=== PATIENT | male | born 1950 | race African-American/Black ===

== ENCOUNTER 2022-05-18 15:04 | Inpatient (IN) | payer MEDICARE, MEDICAID ==
[~2022-05-18] VITALS: Ht 170.2 cm; Wt 76.5 kg
[2022-05-18] MEDS ORDERED: SODIUM CHLORIDE 0.9% 1,000 ML IV ONE (15:45)
[2022-05-18 15:58] LABS: BASOPHILS % (AUTO) 0.4 % (0.0-2.0); EOSINOPHILS % (AUTO) 0 % (1.0-6.0); HEMOGLOBIN 12.5 g/dL (13.5-17.5); MONOCYTES # (AUTO) 1.1 K/uL (0.1-1.0)
[2022-05-18 16:02] LABS: HEMATOCRIT 40.5 % (41-53); LYMPHOCYTES # (AUTO) 0.5 K/uL (1.0-4.8); LYMPHOCYTES % (AUTO) 3.7 % (22.0-44.0); MEAN CORPUSCULAR HEMOGLOBIN 26.8 pg (26.0-34.0); MEAN CORPUSCULAR HGB CONC 30.9 G/dL (31.0-37.0); MEAN CORPUSCULAR VOLUME 87 fL (80-100); MONOCYTES % (AUTO) 8.8 % (2.0-9.0); NEUTROPHILS # (AUTO) 10.9 K/uL (1.8-7.7); PLATELET COUNT (AUTO) 247 K/uL (150-450); RED BLOOD CELL COUNT(AUTO) 4.67 MIL/uL (4.50-5.90); RED CELL DISTRIBUTION WIDTH 15.7 % (11.5-14.5)
[2022-05-18 16:08] LABS: NEUTROPHILS % (AUTO) 87.1 % (40.0-70.0)
[2022-05-18 16:12] LABS: INR 1.1 (0.9-1.1); PROTHROMBIN TIME 11.9 SEC (9.4-11.6)
[2022-05-18 16:13] LABS: COVID AG,FIA SOURCE NASOPHARYNGEAL
[2022-05-18 16:19] LABS: APPEARANCE,URINE HAZY (CLEAR); BILIRUBIN,URINE NEGATIVE (NEGATIVE); GLUCOSE, URINE (UA) NEGATIVE (NEGATIVE); LEUKOCYTE ESTERASE ,URINE NEGATIVE (NEGATIVE); NITRATE,URINE NEGATIVE (NEGATIVE); OCCULT BLOOD,URINE LARGE (NEGATIVE); PROTEIN,URINE 100-200,SEE CONFIRM mg/dL (NEGATIVE); SPECIFIC GRAVITIY, URINE 1.024 (1.003-1.030); UROBILINOGEN,URINE <=1.0 mg/dL (<=1.0)
[2022-05-18 16:19] LABS: AMMONIA 24 umol/L (11-32); LACTIC ACID 6.9 mmol/L (0.4-2.0)
[2022-05-18 16:25] LABS: ALANINE AMINOTRANSFERASE 156 U/L (12-78); ALBUMIN 3.5 g/dL (3.4-5.0); ALKALINE PHOSPHATASE 121 U/L (46-116); ANION GAP 18 mmol/L (8-16); ASPARTATE AMINOTRANSFERASE 465 U/L (15-37); BILIRUBIN,TOTAL 0.7 mg/dL (0.1-1.0); CALCIUM, TOTAL 10.8 mg/dL (8.8-10.5); CARBON DIOXIDE 26 mmol/L (22-29); CHLORIDE 117 mmol/L (98-107); CREATININE 3.52 mg/dL (0.60-1.30); FREE T4 (FREE THYROXINE) 1.54 ng/dL (0.76-1.46); GLUCOSE,RANDOM 165 mg/dL (70-110); POTASSIUM 4.8 mmol/L (3.5-5.1); THYROID STIMULATING HORMONE 0.98 uIU/mL (0.36-3.74); TOTAL PROTEIN, SERUM 9.8 g/dL (6.4-8.2); UREA NITROGEN, BLOOD 98 mg/dL (7-18)
[2022-05-18 16:30] LABS: AMPHET/METH SCREEN,URINE NEGATIVE (NEGATIVE); BARBITURATE SCREEN, URINE NEGATIVE (NEGATIVE); BENZODIAZEPINES SCREEN,URINE NEGATIVE (NEGATIVE); CANNABINOID SCREEN,URINE NEGATIVE (NEGATIVE); COCAINE SCREEN,URINE NEGATIVE (NEGATIVE); METHADONE SCREEN, URINE NEGATIVE (NEGATIVE); OPIATE SCREEN,URINE NEGATIVE (NEGATIVE); PHENCYCLIDINE SCREEN,URINE NEGATIVE (NEGATIVE)
[2022-05-18 16:39] LABS: GLOMERULAR FILTR. RATE CALC 15 mL/min (>60)
[2022-05-18 16:40] LABS: INFLUENZA TYPE A NEGATIVE FOR TYPE A (NEGATIVE); INFLUENZA TYPE B NEGATIVE FOR TYPE B (NEGATIVE)
[2022-05-18 16:40] LABS: DIGOXIN < 0.20 ng/mL (0.90-2.00); VALPROIC ACID < 3 mcg/mL (50-100)
[2022-05-18 16:41] LABS: AMORPHOUS SEDIMENT,UR Few /LPF (None Seen); BACTERIA,URINE Few /HPF (None Seen); COARSE GRANULAR CASTS,URINE 0-2 /LPF (None Seen); SQUAMOUS EPITHELIAL CELL,UR Few /LPF (None Seen); WBC,URINE 0-2 /HPF (0-5); YEAST,URINE None Seen /HPF (None Seen)
[2022-05-18 16:42] LABS: SULFOSALICYLIC ACID,URINE 2+ (Negative)
[2022-05-18 16:42] LABS: SODIUM SERUM 161 mmol/L (136-145)
[2022-05-18] MEDS ORDERED: RINGERS LACTATED IV ONE (16:45)
[2022-05-18 16:47] LABS: B-TYPE NATRIURETIC PEPTIDE 91 pg/mL (0-100)
[2022-05-18] MEDS ORDERED: PIPERACILLIN/TAZO 3.375 GM/D5W 50 ML IV ONE (17:00)
[2022-05-18 17:17] LABS: CREATINE KINASE, TOTAL ONLY 19365 U/L (39-308)
[2022-05-18] MEDS ORDERED: ASPIRIN 300 MG RECTAL SUPPOSITORY PR ONE (18:00)
[2022-05-18] MEDS: VANCOMYCIN HCL 1.25 GM in DEXTROSE 5%-WATER 250 ML IV ONE ×2 (18:55→20:06)
[2022-05-18] MEDS ORDERED: DEXTROSE 5%-WATER 1,000 ML IV SCH (20:15)
[2022-05-18] MEDS ORDERED: ONDANSETRON HCL 4 MG/2 ML VIAL IVP PRN (20:15)
[2022-05-18] MEDS ORDERED: *CLINICAL-CEFEPIME DOSING CLINICAL ONE (21:00)
[2022-05-18 21:02] LABS: ALBUMIN 3.1 g/dL (3.4-5.0); BILIRUBIN,TOTAL 0.6 mg/dL (0.1-1.0); CALCIUM, TOTAL 10.2 mg/dL (8.8-10.5); CREATININE 3.63 mg/dL (0.60-1.30); POTASSIUM 4.9 mmol/L (3.5-5.1); TOTAL PROTEIN, SERUM 8.7 g/dL (6.4-8.2)
[2022-05-18] MEDS ORDERED: SODIUM CHLORIDE 0.9% 1,000 ML IV SCH (21:15)
[2022-05-18] MEDS: SODIUM CHLORIDE 0.45% 1,000 ML IV SCH (21:37)
[2022-05-18] MEDS ORDERED: DEXTROSE 50%-WATER 25 GM/50 ML SYRINGE IVP PRN (21:45)
[2022-05-18] MEDS ORDERED: ROCURONIUM BROMIDE 10 MG/ML 5 ML VIAL IVP ONE (21:45)
[2022-05-18] MEDS ORDERED: ETOMIDATE 2 MG/ML 10 ML VIAL IVP ONE (21:45)
[2022-05-18] MEDS ORDERED: CEFEPIME HCL 1 GM in DEXTROSE 5%-WATER 50 ML IV ONE (22:00)
[2022-05-18] MEDS: MIDAZOLAM HCL 100 MG in SODIUM CHLORIDE 0.9% 180 ML IV PRN (22:58)
[2022-05-19] MEDS ORDERED: NITROGLYCERIN 2% (1 GM=INCH) OINTMENT PACKET TP PRN (00:30)
[2022-05-19] MEDS: HEPARIN SODIUM,PORCINE 5,000 UNITS/ML VIAL SQ SCH ×3 (00:38→17:39)
[2022-05-19] MEDS: SODIUM CHLORIDE 0.45% 1,000 ML IV SCH ×4 (04:14→21:04)
[2022-05-19] MEDS: NITROGLYCERIN 2% (1 GM=INCH) OINTMENT PACKET TP SCH ×3 (06:18→18:00)
[2022-05-19 06:54] LABS: ABG CARBOXYHEMOGLOBIN 0.3 % (0.0-1.5); ABG HCO3 24.6 mmol/L (22.0-26.0); ABG METHEMOGLOBIN 0.3 % (0.0-1.5); ABG OXYGEN CONTENT 16.7 mL/dL (15.0-23.0); ABG OXYGEN SATURATION 98.6 % (95.0-98.0); ABG PCO2 38 mmHg (35-45); ABG PH 7.423 (7.35-7.450); ABG TOTAL HEMOGLOBIN 11.9 G/dL (12.0-18.0); SOURCE, BLOOD GAS ARTERIAL; TEMPERATURE, FAHRENHEIT, BG 97.1 FAHREN (96.0-98.6)
[2022-05-19 06:56] LABS: ABG A-A DIFF O2 177.4 mmHg (10-20.0); O2 DEVICE,BLOOD GAS VENTILATOR (ROOM AIR); PEEP,BG 5 cm H2O; SITE, BLOOD GAS RT BRACHIAL; SPONTANEOUS VT, BG 425 ml; VT, ABG 450 ml
[2022-05-19] MEDS ORDERED: VANCOMYCIN 1GM/WATER(PEG/NADA) 200 ML IV PRN (07:30)
[2022-05-19 08:09] LABS: CALCIUM, TOTAL 8.9 mg/dL (8.8-10.5); CREATININE 4.65 mg/dL (0.60-1.30); POTASSIUM 4.1 mmol/L (3.5-5.1)
[2022-05-19 08:42] LABS: HEMATOCRIT 35.1 % (41-53); HEMOGLOBIN 10.9 g/dL (13.5-17.5); MEAN CORPUSCULAR HEMOGLOBIN 26.6 pg (26.0-34.0); MEAN CORPUSCULAR VOLUME 86 fL (80-100); PLATELET COUNT (AUTO) 197 K/uL (150-450); RED BLOOD CELL COUNT(AUTO) 4.08 MIL/uL (4.50-5.90); RED CELL DISTRIBUTION WIDTH 15.9 % (11.5-14.5)
[2022-05-19 09:16] LABS: BAND NEUTROPHILS % (MANUAL) 9 % (0-5); LYMPHOCYTES % (MANUAL) 11 % (22-44); MONOCYTES % (MANUAL) 4 % (2-9); SEGMENTED NEUTROPHILS % 76 % (40-70)
[2022-05-19] MEDS ORDERED: FUROSEMIDE 40 MG/4 ML VIAL IVP ONE (10:30)
[2022-05-19 12:00] VITALS: BP 140/68
[2022-05-19] MEDS: FentaNYL CIT 1000MCG/0.9% NACL 100 ML IV PRN (14:24)
[2022-05-19 16:00] VITALS: BP 135/70
[2022-05-19 17:13] LABS: CALCIUM, TOTAL 8.2 mg/dL (8.8-10.5); CREATININE 5.17 mg/dL (0.60-1.30); MAGNESIUM 2.8 mg/dL (1.80-2.40); PHOSPHORUS 6.9 mg/dL (2.5-4.9); POTASSIUM 4.3 mmol/L (3.5-5.1)
[2022-05-19] MEDS ORDERED: BUMETANIDE 0.25 MG/ML 4 ML VIAL IM ONE (17:30)
[2022-05-19 20:00] VITALS: BP 122/73
[2022-05-19] MEDS: CEFEPIME HCL 1 GM in DEXTROSE 5%-WATER 50 ML IV SCH (21:03)
[2022-05-20] VITALS: BP 121/77
[2022-05-20] MEDS: HEPARIN SODIUM,PORCINE 5,000 UNITS/ML VIAL SQ SCH ×3 (00:11→16:32)
[2022-05-20] MEDS: FentaNYL CIT 1000MCG/0.9% NACL 100 ML IV PRN ×2 (00:12→14:41)
[2022-05-20] MEDS: NITROGLYCERIN 2% (1 GM=INCH) OINTMENT PACKET TP SCH ×4 (00:14→18:05)
[2022-05-20 01:41] LABS: GLUCOSE,POINT OF CARE 93 MG/DL (70-110)
[2022-05-20 04:00] VITALS: BP 156/85
[2022-05-20 05:19] LABS: BASOPHILS % (AUTO) 0.2 % (0.0-2.0); EOSINOPHILS % (AUTO) 0.2 % (1.0-6.0); HEMATOCRIT 27.6 % (41-53); HEMOGLOBIN 8.9 g/dL (13.5-17.5); LYMPHOCYTES # (AUTO) 0.6 K/uL (1.0-4.8); LYMPHOCYTES % (AUTO) 5.5 % (22.0-44.0); MEAN CORPUSCULAR HEMOGLOBIN 27.3 pg (26.0-34.0); MEAN CORPUSCULAR HGB CONC 32.3 G/dL (31.0-37.0); MEAN CORPUSCULAR VOLUME 85 fL (80-100); MONOCYTES # (AUTO) 0.8 K/uL (0.1-1.0); MONOCYTES % (AUTO) 7.8 % (2.0-9.0); NEUTROPHILS # (AUTO) 8.9 K/uL (1.8-7.7); PLATELET COUNT (AUTO) 157 K/uL (150-450); RED BLOOD CELL COUNT(AUTO) 3.26 MIL/uL (4.50-5.90); RED CELL DISTRIBUTION WIDTH 15.7 % (11.5-14.5)
[2022-05-20 05:27] LABS: NEUTROPHILS % (AUTO) 86.3 % (40.0-70.0)
[2022-05-20 05:28] LABS: HEMOGLOBIN A1C 5.8 % (3.8-5.6)
[2022-05-20 05:32] LABS: CREATININE 6.08 mg/dL (0.60-1.30); POTASSIUM 4.5 mmol/L (3.5-5.1); VANCOMYCIN,RANDOM 13.8 mcg/mL (25.0-50.0)
[2022-05-20 05:45] LABS: MAGNESIUM 2.7 mg/dL (1.80-2.40)
[2022-05-20] MEDS ORDERED: BUMETANIDE 0.25 MG/ML 4 ML VIAL IVP ONE ×2 (06:15→14:15)
[2022-05-20 06:21] LABS: GLUCOSE,POINT OF CARE 112 MG/DL (70-110)
[2022-05-20] MEDS: SODIUM CHLORIDE 0.45% 1,000 ML IV SCH ×3 (06:33→20:05)
[2022-05-20 08:00] VITALS: BP 130/81
[2022-05-20] MEDS ORDERED: VANCOMYCIN 1GM/WATER(PEG/NADA) 200 ML IV ONE (08:00)
[2022-05-20 08:11] LABS: GLUCOSE,POINT OF CARE 83 MG/DL (70-110)
[2022-05-20] MEDS ORDERED: SODIUM CHLORIDE 0.9% 250 ML IV ONE (08:30)
[2022-05-20 12:00] VITALS: BP 127/77
[2022-05-20 13:46] LABS: GLUCOSE,POINT OF CARE 74 MG/DL (70-110)
[2022-05-20 15:30] LABS: CREATININE,URINE RANDOM 19.9 mg/dL (30.0-125.0)
[2022-05-20 16:00] VITALS: BP 144/84
[2022-05-20 18:01] LABS: CREATININE 6.74 mg/dL (0.60-1.30)
[2022-05-20 18:36] LABS: GLUCOSE,POINT OF CARE 81 MG/DL (70-110)
[2022-05-20 19:21] LABS: GLUCOSE,POINT OF CARE 79 MG/DL (70-110)
[2022-05-20 20:00] VITALS: BP 136/77
[2022-05-20] MEDS: BUMETANIDE 0.25 MG/ML 4 ML VIAL IVP SCH (20:05)
[2022-05-20] MEDS: CEFEPIME HCL 1 GM in DEXTROSE 5%-WATER 50 ML IV SCH (21:40)
[2022-05-21] VITALS: BP 136/87
[2022-05-21] MEDS: HEPARIN SODIUM,PORCINE 5,000 UNITS/ML VIAL SQ SCH ×3 (00:02→16:55)
[2022-05-21] MEDS: NITROGLYCERIN 2% (1 GM=INCH) OINTMENT PACKET TP SCH ×4 (00:03→16:55)
[2022-05-21] MEDS: SODIUM CHLORIDE 0.45% 1,000 ML IV SCH ×2 (02:49→08:14)
[2022-05-21] MEDS: FentaNYL CIT 1000MCG/0.9% NACL 100 ML IV PRN ×2 (02:50→18:02)
[2022-05-21 04:00] VITALS: BP 158/91
[2022-05-21 05:32] LABS: CALCIUM, TOTAL 7.8 mg/dL (8.8-10.5); CREATININE 7.28 mg/dL (0.60-1.30)
[2022-05-21 06:30] LABS: MAGNESIUM 2.8 mg/dL (1.80-2.40); PHOSPHORUS 7.9 mg/dL (2.5-4.9)
[2022-05-21] MEDS ORDERED: SODIUM CHLORIDE 0.9% 250 ML IV ONE (06:49)
[2022-05-21 06:56] LABS: GLUCOSE,POINT OF CARE 85 MG/DL (70-110)
[2022-05-21 06:56] LABS: GLUCOSE,POINT OF CARE 77 MG/DL (70-110)
[2022-05-21 08:00] VITALS: BP 160/90
[2022-05-21] MEDS: BUMETANIDE 0.25 MG/ML 4 ML VIAL IVP SCH ×2 (08:11→20:46)
[2022-05-21 09:49] LABS: CALCIUM, TOTAL 7.7 mg/dL (8.8-10.5); CREATININE 7.5 mg/dL (0.60-1.30); POTASSIUM 4.9 mmol/L (3.5-5.1)
[2022-05-21] MEDS: AmLODIPine BESYLATE 2.5 MG TABLET PO SCH ×2 (11:42→20:46)
[2022-05-21 12:00] VITALS: BP 160/98
[2022-05-21] MEDS ORDERED: BUMETANIDE 0.25 MG/ML 4 ML VIAL IVP ONE (13:30)
[2022-05-21] MEDS ORDERED: METOLAZONE 5 MG TABLET PO ONE (13:30)
[2022-05-21 16:00] VITALS: BP 160/90
[2022-05-21 17:06] LABS: GLUCOSE,POINT OF CARE 91 MG/DL (70-110)
[2022-05-21 20:00] VITALS: BP 157/92
[2022-05-21 20:46] LABS: GLUCOSE,POINT OF CARE 96 MG/DL (70-110)
[2022-05-21] MEDS: HydrALAZINE HCL 20 MG/ML VIAL IVP PRN (21:35)
[2022-05-21] MEDS: CEFEPIME HCL 1 GM in DEXTROSE 5%-WATER 50 ML IV SCH (21:41)
[2022-05-22] VITALS (12 sets, daily range): BP systolic 132–174; BP diastolic 70–88
[2022-05-22] MEDS: HEPARIN SODIUM,PORCINE 5,000 UNITS/ML VIAL SQ SCH ×4 (00:16→23:46)
[2022-05-22] MEDS: NITROGLYCERIN 2% (1 GM=INCH) OINTMENT PACKET TP SCH ×5 (00:17→23:46)
[2022-05-22] MEDS ORDERED: SODIUM CHLORIDE 0.9% 250 ML IV ONE ×2 (02:14→20:26)
[2022-05-22 05:47] LABS: BASOPHILS % (AUTO) 0.2 % (0.0-2.0); EOSINOPHILS % (AUTO) 1.6 % (1.0-6.0); HEMATOCRIT 27.2 % (41-53); HEMOGLOBIN 8.7 g/dL (13.5-17.5); LYMPHOCYTES # (AUTO) 0.6 K/uL (1.0-4.8); LYMPHOCYTES % (AUTO) 4.6 % (22.0-44.0); MEAN CORPUSCULAR HEMOGLOBIN 26.9 pg (26.0-34.0); MEAN CORPUSCULAR VOLUME 84 fL (80-100); MONOCYTES % (AUTO) 7.6 % (2.0-9.0); NEUTROPHILS # (AUTO) 11.2 K/uL (1.8-7.7); PLATELET COUNT (AUTO) 192 K/uL (150-450); RED BLOOD CELL COUNT(AUTO) 3.23 MIL/uL (4.50-5.90); RED CELL DISTRIBUTION WIDTH 15.7 % (11.5-14.5)
[2022-05-22 05:53] LABS: CALCIUM, TOTAL 8.2 mg/dL (8.8-10.5); CREATININE 8.38 mg/dL (0.60-1.30); PHOSPHORUS 8.2 mg/dL (2.5-4.9); POTASSIUM 5.2 mmol/L (3.5-5.1); VANCOMYCIN,RANDOM 24.4 mcg/mL (25.0-50.0)
[2022-05-22] MEDS: FentaNYL CIT 1000MCG/0.9% NACL 100 ML IV PRN ×2 (06:03→14:09)
[2022-05-22 06:12] LABS: GLUCOSE,POINT OF CARE 108 MG/DL (70-110)
[2022-05-22 06:12] LABS: GLUCOSE,POINT OF CARE 117 MG/DL (70-110)
[2022-05-22] MEDS: AmLODIPine BESYLATE 2.5 MG TABLET PO SCH ×2 (10:23→21:57)
[2022-05-22] MEDS: BUMETANIDE 0.25 MG/ML 4 ML VIAL IVP SCH ×2 (10:23→20:31)
[2022-05-22 14:06] LABS: GLUCOSE,POINT OF CARE 125 MG/DL (70-110)
[2022-05-22 14:06] LABS: GLUCOSE,POINT OF CARE 133 MG/DL (70-110)
[2022-05-22] MEDS: MIDAZOLAM HCL 100 MG in SODIUM CHLORIDE 0.9% 180 ML IV PRN (14:07)
[2022-05-22] MEDS ORDERED: SODIUM CHLORIDE 0.9% 2,000 ML ONE (15:52)
[2022-05-22] MEDS ORDERED: HEPARIN SODIUM,PORCINE 1,000 UNITS/ML VIAL IVCATH ONE (17:15)
[2022-05-22] MEDS: HEPARIN SODIUM,PORCINE 1,000 UNITS/ML VIAL IVCATH ONE ×2 (17:42→18:04)
[2022-05-22 19:41] LABS: GLUCOSE,POINT OF CARE 123 MG/DL (70-110)
[2022-05-22] MEDS: CEFEPIME HCL 1 GM in DEXTROSE 5%-WATER 50 ML IV SCH (20:32)
[2022-05-23] VITALS (15 sets, daily range): BP systolic 133–166; BP diastolic 62–90
[2022-05-23] MEDS: FentaNYL CIT 1000MCG/0.9% NACL 100 ML IV PRN ×2 (00:30→09:43)
[2022-05-23] MEDS: HydrALAZINE HCL 20 MG/ML VIAL IVP PRN (00:35)
[2022-05-23 02:16] LABS: GLUCOSE,POINT OF CARE 127 MG/DL (70-110)
[2022-05-23] MEDS: NITROGLYCERIN 2% (1 GM=INCH) OINTMENT PACKET TP SCH ×3 (06:33→18:44)
[2022-05-23 06:44] LABS: BASOPHILS % (AUTO) 0.2 % (0.0-2.0); EOSINOPHILS % (AUTO) 2.6 % (1.0-6.0); HEMATOCRIT 25.7 % (41-53); HEMOGLOBIN 8.3 g/dL (13.5-17.5); LYMPHOCYTES # (AUTO) 0.6 K/uL (1.0-4.8); LYMPHOCYTES % (AUTO) 4.8 % (22.0-44.0); MEAN CORPUSCULAR HEMOGLOBIN 26.7 pg (26.0-34.0); MEAN CORPUSCULAR HGB CONC 32.3 G/dL (31.0-37.0); MEAN CORPUSCULAR VOLUME 83 fL (80-100); MONOCYTES # (AUTO) 1.1 K/uL (0.1-1.0); MONOCYTES % (AUTO) 8.4 % (2.0-9.0); NEUTROPHILS # (AUTO) 10.6 K/uL (1.8-7.7); PLATELET COUNT (AUTO) 181 K/uL (150-450); RED BLOOD CELL COUNT(AUTO) 3.11 MIL/uL (4.50-5.90); RED CELL DISTRIBUTION WIDTH 15.6 % (11.5-14.5)
[2022-05-23 07:01] LABS: CALCIUM, TOTAL 7.8 mg/dL (8.8-10.5); CREATININE 6.29 mg/dL (0.60-1.30); MAGNESIUM 2.5 mg/dL (1.80-2.40); PHOSPHORUS 6.2 mg/dL (2.5-4.9); POTASSIUM 4.5 mmol/L (3.5-5.1)
[2022-05-23 07:23] LABS: PLATELET MORPHOLOGY COMMENT LARGE PLTS PRESENT
[2022-05-23] MEDS: HEPARIN SODIUM,PORCINE 5,000 UNITS/ML VIAL SQ SCH ×2 (08:17→16:58)
[2022-05-23] MEDS: AmLODIPine BESYLATE 2.5 MG TABLET PO SCH ×2 (08:21→21:14)
[2022-05-23] MEDS: BUMETANIDE 0.25 MG/ML 4 ML VIAL IVP SCH (08:21)
[2022-05-23] MEDS: DEXMEDETOMIDINE HCL 400 MCG in SODIUM CHLORIDE 0.9% 96 ML IV PRN (10:16)
[2022-05-23 13:21] LABS: GLUCOSE,POINT OF CARE 109 MG/DL (70-110)
[2022-05-23 13:21] LABS: GLUCOSE,POINT OF CARE 124 MG/DL (70-110)
[2022-05-23] MEDS ORDERED: VANCOMYCIN HCL 750 MG in DEXTROSE 5%-WATER 250 ML IV ONE (16:00)
[2022-05-23] MEDS ORDERED: HEPARIN SODIUM,PORCINE 1,000 UNITS/ML VIAL IVP ONE (16:37)
[2022-05-23 18:11] LABS: GLUCOSE,POINT OF CARE 125 MG/DL (70-110)
[2022-05-23] MEDS ORDERED: SODIUM CHLORIDE 0.9% 250 ML IV ONE (21:13)
[2022-05-23] MEDS: CEFEPIME HCL 1 GM in DEXTROSE 5%-WATER 50 ML IV SCH (21:14)
[2022-05-24] VITALS: BP 156/81
[2022-05-24] MEDS: HEPARIN SODIUM,PORCINE 5,000 UNITS/ML VIAL SQ SCH ×4 (00:08→23:30)
[2022-05-24] MEDS: NITROGLYCERIN 2% (1 GM=INCH) OINTMENT PACKET TP SCH ×5 (00:08→23:30)
[2022-05-24] MEDS: INSULIN LISPRO 100 UNITS/ML SQ PRN ×3 (00:09→23:47)
[2022-05-24 00:56] LABS: GLUCOSE,POINT OF CARE 152 MG/DL (70-110)
[2022-05-24 04:00] VITALS: BP 149/84
[2022-05-24 05:18] LABS: BASOPHILS % (AUTO) 0.1 % (0.0-2.0); EOSINOPHILS % (AUTO) 3.3 % (1.0-6.0); HEMATOCRIT 23.7 % (41-53); HEMOGLOBIN 7.8 g/dL (13.5-17.5); LYMPHOCYTES # (AUTO) 0.8 K/uL (1.0-4.8); LYMPHOCYTES % (AUTO) 6.5 % (22.0-44.0); MEAN CORPUSCULAR HEMOGLOBIN 27.2 pg (26.0-34.0); MEAN CORPUSCULAR VOLUME 82 fL (80-100); MONOCYTES # (AUTO) 1.1 K/uL (0.1-1.0); MONOCYTES % (AUTO) 8.6 % (2.0-9.0); NEUTROPHILS # (AUTO) 10.2 K/uL (1.8-7.7); NEUTROPHILS % (AUTO) 81.5 % (40.0-70.0); PLATELET COUNT (AUTO) 148 K/uL (150-450); RED BLOOD CELL COUNT(AUTO) 2.88 MIL/uL (4.50-5.90); RED CELL DISTRIBUTION WIDTH 15.7 % (11.5-14.5)
[2022-05-24 05:25] LABS: CREATININE 4.58 mg/dL (0.60-1.30); POTASSIUM 3.9 mmol/L (3.5-5.1)
[2022-05-24] MEDS: DEXMEDETOMIDINE HCL 400 MCG in SODIUM CHLORIDE 0.9% 96 ML IV PRN (06:24)
[2022-05-24 08:00] VITALS: BP 134/75
[2022-05-24 08:31] LABS: GLUCOSE,POINT OF CARE 156 MG/DL (70-110)
[2022-05-24] MEDS: BUMETANIDE 0.25 MG/ML 4 ML VIAL IVP SCH (08:35)
[2022-05-24] MEDS: AmLODIPine BESYLATE 2.5 MG TABLET PO SCH ×2 (08:35→20:36)
[2022-05-24 09:20] LABS: MAGNESIUM 2.1 mg/dL (1.80-2.40); PHOSPHORUS 3.9 mg/dL (2.5-4.9)
[2022-05-24 11:57] LABS: ABG BASE EXCESS 2.5 mmol/L (-2.0-3.0); ABG CARBOXYHEMOGLOBIN 0.4 % (0.0-1.5); ABG HCO3 26.7 mmol/L (22.0-26.0); ABG METHEMOGLOBIN 0.3 % (0.0-1.5); ABG OXYGEN CONTENT 11.9 mL/dL (15.0-23.0); ABG OXYGEN SATURATION 97.4 % (95.0-98.0); ABG OXYHEMOGLOBIN 96.7 % (94.0-100.0); ABG PCO2 35 mmHg (35-45); ABG PH 7.489 (7.35-7.450); ABG TOTAL HEMOGLOBIN 8.6 G/dL (12.0-18.0); PO2, ARTERIAL BG 93.2 mmHg (75.0-83.0); SITE, BLOOD GAS RT RADIAL; SOURCE, BLOOD GAS ARTERIAL
[2022-05-24 11:58] LABS: O2 DEVICE,BLOOD GAS VENTILATOR (ROOM AIR); PEEP,BG 5 cm H2O
[2022-05-24 11:59] LABS: VT, ABG 450 ml
[2022-05-24 12:00] VITALS: BP 158/91
[2022-05-24] MEDS: METOCLOPRAMIDE HCL 5 MG/ML 2 ML VIAL IVP SCH ×2 (13:15→23:30)
[2022-05-24 13:31] LABS: GLUCOSE,POINT OF CARE 123 MG/DL (70-110)
[2022-05-24 16:00] VITALS: BP 167/77
[2022-05-24] MEDS: LACTULOSE 20 GM/30 ML SOLUTION UDCUP NG SCH ×2 (16:26→20:36)
[2022-05-24] MEDS: HydrALAZINE HCL 20 MG/ML VIAL IVP PRN (17:14)
[2022-05-24 18:46] LABS: GLUCOSE,POINT OF CARE 145 MG/DL (70-110)
[2022-05-24 20:00] VITALS: BP 171/92
[2022-05-24] MEDS: CEFEPIME HCL 1 GM in DEXTROSE 5%-WATER 50 ML IV SCH (22:00)
[2022-05-25] VITALS: BP 172/80
[2022-05-25] MEDS: HydrALAZINE HCL 20 MG/ML VIAL IVP PRN ×3 (01:28→16:04)
[2022-05-25 02:31] LABS: GLUCOSE,POINT OF CARE 152 MG/DL (70-110)
[2022-05-25 04:00] VITALS: BP 170/86
[2022-05-25] MEDS: INSULIN LISPRO 100 UNITS/ML SQ PRN (05:50)
[2022-05-25 05:51] LABS: BASOPHILS % (AUTO) 0.1 % (0.0-2.0); EOSINOPHILS % (AUTO) 0 % (1.0-6.0); HEMATOCRIT 25.4 % (41-53); HEMOGLOBIN 8.2 g/dL (13.5-17.5); LYMPHOCYTES # (AUTO) 0.5 K/uL (1.0-4.8); LYMPHOCYTES % (AUTO) 2.7 % (22.0-44.0); MEAN CORPUSCULAR HEMOGLOBIN 26.4 pg (26.0-34.0); MEAN CORPUSCULAR HGB CONC 32.2 G/dL (31.0-37.0); MEAN CORPUSCULAR VOLUME 82 fL (80-100); MONOCYTES # (AUTO) 1.5 K/uL (0.1-1.0); MONOCYTES % (AUTO) 8.1 % (2.0-9.0); NEUTROPHILS # (AUTO) 16.2 K/uL (1.8-7.7); PLATELET COUNT (AUTO) 209 K/uL (150-450); RED CELL DISTRIBUTION WIDTH 14.9 % (11.5-14.5)
[2022-05-25 05:53] LABS: NEUTROPHILS % (AUTO) 89.1 % (40.0-70.0)
[2022-05-25] MEDS: NITROGLYCERIN 2% (1 GM=INCH) OINTMENT PACKET TP SCH ×4 (05:59→23:54)
[2022-05-25 06:04] LABS: CALCIUM, TOTAL 8.5 mg/dL (8.8-10.5); CREATININE 6.3 mg/dL (0.60-1.30); POTASSIUM 4.5 mmol/L (3.5-5.1)
[2022-05-25 07:02] LABS: GLUCOSE,POINT OF CARE 145 MG/DL (70-110)
[2022-05-25 08:00] VITALS: BP 176/82
[2022-05-25] MEDS: AmLODIPine BESYLATE 2.5 MG TABLET PO SCH (08:55)
[2022-05-25] MEDS: ETHYL ALCOHOL 62% ANTISEPTIC NASAL SANITIZER 0.6 ML AMPUL NASAL SCH ×2 (08:58→20:22)
[2022-05-25] MEDS: BUMETANIDE 0.25 MG/ML 4 ML VIAL IVP SCH (08:58)
[2022-05-25] MEDS: HEPARIN SODIUM,PORCINE 5,000 UNITS/ML VIAL SQ SCH ×3 (08:58→23:54)
[2022-05-25] MEDS: METOCLOPRAMIDE HCL 5 MG/ML 2 ML VIAL IVP SCH ×3 (08:58→23:54)
[2022-05-25] MEDS: LACTULOSE 20 GM/30 ML SOLUTION UDCUP NG SCH ×3 (08:58→20:23)
[2022-05-25 12:00] VITALS: BP 169/76
[2022-05-25 16:00] VITALS: BP 188/104
[2022-05-25 18:32] LABS: GLUCOSE,POINT OF CARE 133 MG/DL (70-110)
[2022-05-25 20:00] VITALS: BP 169/88
[2022-05-25] MEDS: AmLODIPine BESYLATE 5 MG TABLET PO SCH (20:22)
[2022-05-25] MEDS: CEFEPIME HCL 1 GM in DEXTROSE 5%-WATER 50 ML IV SCH (21:50)
[2022-05-26] VITALS: BP 170/83
[2022-05-26 04:00] VITALS: BP 167/83
[2022-05-26] MEDS: NITROGLYCERIN 2% (1 GM=INCH) OINTMENT PACKET TP SCH ×3 (06:22→18:33)
[2022-05-26 06:23] LABS: CALCIUM, TOTAL 8.9 mg/dL (8.8-10.5); CREATININE 7.7 mg/dL (0.60-1.30); POTASSIUM 5.2 mmol/L (3.5-5.1); VANCOMYCIN,RANDOM 21.8 mcg/mL (25.0-50.0)
[2022-05-26 06:25] LABS: BASOPHILS % (AUTO) 0.2 % (0.0-2.0); EOSINOPHILS % (AUTO) 0.5 % (1.0-6.0); HEMATOCRIT 22.8 % (41-53); HEMOGLOBIN 7.3 g/dL (13.5-17.5); LYMPHOCYTES # (AUTO) 0.6 K/uL (1.0-4.8); LYMPHOCYTES % (AUTO) 3.6 % (22.0-44.0); MEAN CORPUSCULAR HEMOGLOBIN 26.1 pg (26.0-34.0); MEAN CORPUSCULAR HGB CONC 32.2 G/dL (31.0-37.0); MEAN CORPUSCULAR VOLUME 81 fL (80-100); MONOCYTES # (AUTO) 1.5 K/uL (0.1-1.0); MONOCYTES % (AUTO) 8.9 % (2.0-9.0); NEUTROPHILS # (AUTO) 14.8 K/uL (1.8-7.7); PLATELET COUNT (AUTO) 245 K/uL (150-450); RED CELL DISTRIBUTION WIDTH 15.4 % (11.5-14.5)
[2022-05-26 06:35] LABS: NEUTROPHILS % (AUTO) 86.8 % (40.0-70.0)
[2022-05-26 07:26] LABS: GLUCOSE,POINT OF CARE 119 MG/DL (70-110)
[2022-05-26 07:26] LABS: GLUCOSE,POINT OF CARE 122 MG/DL (70-110)
[2022-05-26 08:00] VITALS: BP 165/88
[2022-05-26] MEDS: AmLODIPine BESYLATE 5 MG TABLET PO SCH ×2 (09:50→21:47)
[2022-05-26] MEDS: LACTULOSE 20 GM/30 ML SOLUTION UDCUP NG SCH ×3 (09:50→21:47)
[2022-05-26] MEDS: HEPARIN SODIUM,PORCINE 5,000 UNITS/ML VIAL SQ SCH ×2 (09:51→16:00)
[2022-05-26] MEDS: PANTOPRAZOLE SODIUM 40 MG/VIAL IVP SCH (09:51)
[2022-05-26] MEDS: BUMETANIDE 0.25 MG/ML 4 ML VIAL IVP SCH (09:51)
[2022-05-26] MEDS: METOCLOPRAMIDE HCL 5 MG/ML 2 ML VIAL IVP SCH ×2 (09:52→18:33)
[2022-05-26] MEDS: ETHYL ALCOHOL 62% ANTISEPTIC NASAL SANITIZER 0.6 ML AMPUL NASAL SCH ×2 (09:52→21:47)
[2022-05-26] MEDS ORDERED: EPOETIN ALFA 10,000 UNITS/ML VIAL SQ ONE (10:00)
[2022-05-26 11:28] LABS: ABG BASE EXCESS -1.1 mmol/L (-2.0-3.0); ABG CARBOXYHEMOGLOBIN 0.3 % (0.0-1.5); ABG HCO3 23.8 mmol/L (22.0-26.0); ABG METHEMOGLOBIN 0.5 % (0.0-1.5); ABG OXYGEN CONTENT 11.6 mL/dL (15.0-23.0); ABG OXYGEN SATURATION 98.1 % (95.0-98.0); ABG OXYHEMOGLOBIN 97.3 % (94.0-100.0); ABG PCO2 34 mmHg (35-45); ABG PH 7.446 (7.35-7.450); ABG TOTAL HEMOGLOBIN 8.3 G/dL (12.0-18.0); PO2, ARTERIAL BG 106.4 mmHg (75.0-83.0); SOURCE, BLOOD GAS ARTERIAL; TEMPERATURE, FAHRENHEIT, BG 97.6 FAHREN (96.0-98.6)
[2022-05-26 11:29] LABS: O2 DEVICE,BLOOD GAS VENTILATOR (ROOM AIR); PEEP,BG 5 cm H2O; PRESSURE SUPPORT, BG 5 cm H2O; SITE, BLOOD GAS RT RADIAL; SPONTANEOUS VT, BG 501 ml; VENT MODE, BG Press. Support Vent. (ROOM AIR)
[2022-05-26 12:00] VITALS: BP 161/85
[2022-05-26 16:00] VITALS: BP 171/81
[2022-05-26] MEDS: CEFEPIME HCL 0.5 GM in DEXTROSE 5%-WATER 50 ML IV SCH (18:33)
[2022-05-26 20:00] VITALS: BP 164/88
[2022-05-26 21:06] LABS: GLUCOSE,POINT OF CARE 127 MG/DL (70-110)
[2022-05-26] MEDS: HydrALAZINE HCL 20 MG/ML VIAL IVP PRN (21:54)
[2022-05-27] VITALS (14 sets, daily range): BP systolic 103–172; BP diastolic 49–94
[2022-05-27] MEDS: METOCLOPRAMIDE HCL 5 MG/ML 2 ML VIAL IVP SCH ×3 (00:22→16:01)
[2022-05-27] MEDS: HEPARIN SODIUM,PORCINE 5,000 UNITS/ML VIAL SQ SCH ×3 (00:22→16:01)
[2022-05-27] MEDS: NITROGLYCERIN 2% (1 GM=INCH) OINTMENT PACKET TP SCH ×4 (00:22→18:25)
[2022-05-27 03:31] LABS: GLUCOSE,POINT OF CARE 124 MG/DL (70-110)
[2022-05-27 03:31] LABS: GLUCOSE,POINT OF CARE 133 MG/DL (70-110)
[2022-05-27 06:44] LABS: BASOPHILS % (AUTO) 0.2 % (0.0-2.0); EOSINOPHILS % (AUTO) 1.2 % (1.0-6.0); HEMOGLOBIN 7.4 g/dL (13.5-17.5); LYMPHOCYTES # (AUTO) 0.6 K/uL (1.0-4.8); LYMPHOCYTES % (AUTO) 3.8 % (22.0-44.0); MEAN CORPUSCULAR HEMOGLOBIN 26.1 pg (26.0-34.0); MEAN CORPUSCULAR VOLUME 82 fL (80-100); MONOCYTES # (AUTO) 1.6 K/uL (0.1-1.0); MONOCYTES % (AUTO) 9.5 % (2.0-9.0); NEUTROPHILS # (AUTO) 14.5 K/uL (1.8-7.7); PLATELET COUNT (AUTO) 290 K/uL (150-450); RED BLOOD CELL COUNT(AUTO) 2.82 MIL/uL (4.50-5.90); RED CELL DISTRIBUTION WIDTH 15.5 % (11.5-14.5)
[2022-05-27 06:46] LABS: NEUTROPHILS % (AUTO) 85.3 % (40.0-70.0)
[2022-05-27 06:47] LABS: GLUCOSE,POINT OF CARE 138 MG/DL (70-110)
[2022-05-27 06:55] LABS: CALCIUM, TOTAL 8.5 mg/dL (8.8-10.5); CREATININE 9.11 mg/dL (0.60-1.30); POTASSIUM 5.2 mmol/L (3.5-5.1)
[2022-05-27] MEDS: BUMETANIDE 0.25 MG/ML 4 ML VIAL IVP SCH (08:05)
[2022-05-27] MEDS: PANTOPRAZOLE SODIUM 40 MG/VIAL IVP SCH (08:05)
[2022-05-27] MEDS: ETHYL ALCOHOL 62% ANTISEPTIC NASAL SANITIZER 0.6 ML AMPUL NASAL SCH ×2 (08:05→21:34)
[2022-05-27] MEDS: AmLODIPine BESYLATE 5 MG TABLET PO SCH ×2 (08:05→21:34)
[2022-05-27] MEDS: LACTULOSE 20 GM/30 ML SOLUTION UDCUP NG SCH ×3 (08:06→19:37)
[2022-05-27] MEDS ORDERED: SODIUM CHLORIDE 0.9% 1,000 ML ONE (13:00)
[2022-05-27 13:51] LABS: ABG BASE EXCESS -1.4 mmol/L (-2.0-3.0); ABG CARBOXYHEMOGLOBIN 0.5 % (0.0-1.5); ABG HCO3 23.6 mmol/L (22.0-26.0); ABG METHEMOGLOBIN 0.3 % (0.0-1.5); ABG OXYGEN CONTENT 11.1 mL/dL (15.0-23.0); ABG OXYGEN SATURATION 98.3 % (95.0-98.0); ABG OXYHEMOGLOBIN 97.5 % (94.0-100.0); ABG PCO2 33 mmHg (35-45); ABG PH 7.458 (7.35-7.450); PO2, ARTERIAL BG 117.6 mmHg (75.0-83.0); SOURCE, BLOOD GAS ARTERIAL; TEMPERATURE, FAHRENHEIT, BG 98.6 FAHREN (96.0-98.6)
[2022-05-27 13:52] LABS: ABG A-A DIFF O2 117.6 mmHg (10-20.0); ABG TOTAL HEMOGLOBIN 7.9 G/dL (12.0-18.0); CPAP, BG 0 cm H2O; O2 DEVICE,BLOOD GAS VENTILATOR (ROOM AIR); PRESSURE SUPPORT, BG 8 cm H2O; SITE, BLOOD GAS RT RADIAL; SPONTANEOUS VT, BG 425 ml; VENT MODE, BG CPAP (ROOM AIR)
[2022-05-27] MEDS ORDERED: VANCOMYCIN HCL 750 MG in DEXTROSE 5%-WATER 250 ML IV ONE (16:00)
[2022-05-27 17:21] LABS: GLUCOSE,POINT OF CARE 131 MG/DL (70-110)
[2022-05-27] MEDS ORDERED: HEPARIN SODIUM,PORCINE 1,000 UNITS/ML VIAL IVP ONE (17:34)
[2022-05-27] MEDS: CEFEPIME HCL 0.5 GM in DEXTROSE 5%-WATER 50 ML IV SCH (18:25)
[2022-05-27] MEDS: INSULIN LISPRO 100 UNITS/ML SQ PRN (18:26)
[2022-05-27 20:46] LABS: GLUCOSE,POINT OF CARE 143 MG/DL (70-110)
[2022-05-28] VITALS (14 sets, daily range): BP systolic 150–172; BP diastolic 8–97
[2022-05-28] MEDS: METOCLOPRAMIDE HCL 5 MG/ML 2 ML VIAL IVP SCH ×3 (00:26→16:18)
[2022-05-28] MEDS: NITROGLYCERIN 2% (1 GM=INCH) OINTMENT PACKET TP SCH ×4 (00:26→17:11)
[2022-05-28] MEDS: HEPARIN SODIUM,PORCINE 5,000 UNITS/ML VIAL SQ SCH ×3 (00:26→16:00)
[2022-05-28] MEDS: HydrALAZINE HCL 20 MG/ML VIAL IVP PRN ×2 (03:57→16:18)
[2022-05-28 05:16] LABS: GLUCOSE,POINT OF CARE 126 MG/DL (70-110)
[2022-05-28] MEDS ORDERED: SODIUM CHLORIDE 0.9% 250 ML IV ONE ×2 (06:35→20:26)
[2022-05-28 08:31] LABS: GLUCOSE,POINT OF CARE 131 MG/DL (70-110)
[2022-05-28] MEDS: PANTOPRAZOLE SODIUM 40 MG/VIAL IVP SCH (08:37)
[2022-05-28] MEDS: BUMETANIDE 0.25 MG/ML 4 ML VIAL IVP SCH (08:38)
[2022-05-28] MEDS: AmLODIPine BESYLATE 5 MG TABLET PO SCH ×2 (08:38→20:30)
[2022-05-28] MEDS: ETHYL ALCOHOL 62% ANTISEPTIC NASAL SANITIZER 0.6 ML AMPUL NASAL SCH ×2 (08:38→20:30)
[2022-05-28] MEDS: LACTULOSE 20 GM/30 ML SOLUTION UDCUP NG SCH ×3 (08:40→20:35)
[2022-05-28 08:54] LABS: CALCIUM, TOTAL 8.4 mg/dL (8.8-10.5); CREATININE 6.17 mg/dL (0.60-1.30); POTASSIUM 4.7 mmol/L (3.5-5.1)
[2022-05-28 08:58] LABS: BASOPHILS % (AUTO) 0.2 % (0.0-2.0); EOSINOPHILS % (AUTO) 1.2 % (1.0-6.0); HEMATOCRIT 21.6 % (41-53); LYMPHOCYTES # (AUTO) 0.9 K/uL (1.0-4.8); LYMPHOCYTES % (AUTO) 4.4 % (22.0-44.0); MEAN CORPUSCULAR HEMOGLOBIN 26.2 pg (26.0-34.0); MEAN CORPUSCULAR VOLUME 82 fL (80-100); MONOCYTES # (AUTO) 1.5 K/uL (0.1-1.0); MONOCYTES % (AUTO) 7.5 % (2.0-9.0); NEUTROPHILS # (AUTO) 17.1 K/uL (1.8-7.7); PLATELET COUNT (AUTO) 306 K/uL (150-450); RED BLOOD CELL COUNT(AUTO) 2.63 MIL/uL (4.50-5.90); RED CELL DISTRIBUTION WIDTH 15.6 % (11.5-14.5)
[2022-05-28 09:07] LABS: HEMOGLOBIN 6.9 g/dL (13.5-17.5); NEUTROPHILS % (AUTO) 86.7 % (40.0-70.0)
[2022-05-28] MEDS: ACETAMINOPHEN 325 MG TABLET PO PRN (11:42)
[2022-05-28] MEDS ORDERED: SODIUM CHLORIDE 0.9% 500 ML IV ONE (13:34)
[2022-05-28] MEDS ORDERED: BUMETANIDE 0.25 MG/ML 4 ML VIAL IVP ONE (16:00)
[2022-05-28] MEDS: CEFEPIME HCL 0.5 GM in DEXTROSE 5%-WATER 50 ML IV SCH (17:11)
[2022-05-28 21:46] LABS: GLUCOSE,POINT OF CARE 127 MG/DL (70-110)
[2022-05-28 21:46] LABS: GLUCOSE,POINT OF CARE 127 MG/DL (70-110)
[2022-05-29] VITALS (11 sets, daily range): BP systolic 145–167; BP diastolic 68–90
[2022-05-29] MEDS: NITROGLYCERIN 2% (1 GM=INCH) OINTMENT PACKET TP SCH ×3 (00:25→12:00)
[2022-05-29] MEDS: METOCLOPRAMIDE HCL 5 MG/ML 2 ML VIAL IVP SCH ×3 (00:26→16:39)
[2022-05-29 02:56] LABS: GLUCOSE,POINT OF CARE 133 MG/DL (70-110)
[2022-05-29 05:20] LABS: BASOPHILS % (AUTO) 0.2 % (0.0-2.0); EOSINOPHILS % (AUTO) 1.4 % (1.0-6.0); HEMATOCRIT 25.2 % (41-53); HEMOGLOBIN 8.1 g/dL (13.5-17.5); LYMPHOCYTES # (AUTO) 0.9 K/uL (1.0-4.8); LYMPHOCYTES % (AUTO) 4.2 % (22.0-44.0); MEAN CORPUSCULAR HEMOGLOBIN 26.8 pg (26.0-34.0); MEAN CORPUSCULAR HGB CONC 32.3 G/dL (31.0-37.0); MEAN CORPUSCULAR VOLUME 83 fL (80-100); MONOCYTES # (AUTO) 1.7 K/uL (0.1-1.0); MONOCYTES % (AUTO) 8.1 % (2.0-9.0); NEUTROPHILS # (AUTO) 17.8 K/uL (1.8-7.7); PLATELET COUNT (AUTO) 300 K/uL (150-450); RED BLOOD CELL COUNT(AUTO) 3.03 MIL/uL (4.50-5.90); RED CELL DISTRIBUTION WIDTH 15.6 % (11.5-14.5)
[2022-05-29 05:25] LABS: NEUTROPHILS % (AUTO) 86.1 % (40.0-70.0)
[2022-05-29 05:34] LABS: CALCIUM, TOTAL 8.6 mg/dL (8.8-10.5); CREATININE 7.28 mg/dL (0.60-1.30); MAGNESIUM 2.6 mg/dL (1.80-2.40); PHOSPHORUS 7.2 mg/dL (2.5-4.9); POTASSIUM 5.4 mmol/L (3.5-5.1)
[2022-05-29] MEDS: PANTOPRAZOLE SODIUM 40 MG/VIAL IVP SCH (08:15)
[2022-05-29] MEDS: ETHYL ALCOHOL 62% ANTISEPTIC NASAL SANITIZER 0.6 ML AMPUL NASAL SCH ×2 (08:15→20:35)
[2022-05-29] MEDS: LACTULOSE 20 GM/30 ML SOLUTION UDCUP NG SCH ×3 (08:15→20:35)
[2022-05-29] MEDS: BUMETANIDE 0.25 MG/ML 4 ML VIAL IVP SCH (08:16)
[2022-05-29] MEDS: AmLODIPine BESYLATE 5 MG TABLET PO SCH ×2 (08:16→20:35)
[2022-05-29 09:56] LABS: GLUCOSE,POINT OF CARE 104 MG/DL (70-110)
[2022-05-29] MEDS: HydrALAZINE HCL 20 MG/ML VIAL IVP PRN (10:27)
[2022-05-29] MEDS: HydrALAZINE HCL 25 MG TABLET PO SCH ×2 (12:46→18:07)
[2022-05-29] MEDS: CEFEPIME HCL 0.5 GM in DEXTROSE 5%-WATER 50 ML IV SCH (17:35)
[2022-05-29 20:06] LABS: GLUCOSE,POINT OF CARE 118 MG/DL (70-110)
[2022-05-29 20:06] LABS: GLUCOSE,POINT OF CARE 123 MG/DL (70-110)
[2022-05-30] VITALS (10 sets, daily range): BP systolic 142–171; BP diastolic 67–87
[2022-05-30] MEDS ORDERED: SODIUM CHLORIDE 0.9% 250 ML IV ONE (00:10)
[2022-05-30] MEDS: METOCLOPRAMIDE HCL 5 MG/ML 2 ML VIAL IVP SCH ×3 (00:11→15:10)
[2022-05-30] MEDS: HydrALAZINE HCL 25 MG TABLET PO SCH ×4 (00:12→18:27)
[2022-05-30] MEDS ORDERED: SODIUM CHLORIDE 0.9% 2,000 ML ONE (01:12)
[2022-05-30 05:33] LABS: BASOPHILS % (AUTO) 0.1 % (0.0-2.0); EOSINOPHILS % (AUTO) 1.8 % (1.0-6.0); HEMATOCRIT 22.5 % (41-53); HEMOGLOBIN 7.4 g/dL (13.5-17.5); LYMPHOCYTES # (AUTO) 0.7 K/uL (1.0-4.8); LYMPHOCYTES % (AUTO) 3.1 % (22.0-44.0); MEAN CORPUSCULAR HEMOGLOBIN 27.3 pg (26.0-34.0); MEAN CORPUSCULAR VOLUME 83 fL (80-100); MONOCYTES # (AUTO) 1.8 K/uL (0.1-1.0); MONOCYTES % (AUTO) 8.2 % (2.0-9.0); NEUTROPHILS # (AUTO) 18.6 K/uL (1.8-7.7); PLATELET COUNT (AUTO) 307 K/uL (150-450); RED BLOOD CELL COUNT(AUTO) 2.72 MIL/uL (4.50-5.90); RED CELL DISTRIBUTION WIDTH 15.6 % (11.5-14.5)
[2022-05-30 05:42] LABS: NEUTROPHILS % (AUTO) 86.8 % (40.0-70.0)
[2022-05-30 05:47] LABS: ALBUMIN 1.7 g/dL (3.4-5.0); BILIRUBIN,TOTAL 0.9 mg/dL (0.1-1.0); CALCIUM, TOTAL 8.3 mg/dL (8.8-10.5); CREATININE 4.69 mg/dL (0.60-1.30); PHOSPHORUS 4.6 mg/dL (2.5-4.9); POTASSIUM 4.4 mmol/L (3.5-5.1); TOTAL PROTEIN, SERUM 6.9 g/dL (6.4-8.2); VANCOMYCIN,RANDOM 19.1 mcg/mL (25.0-50.0)
[2022-05-30 07:46] LABS: GLUCOSE,POINT OF CARE 108 MG/DL (70-110)
[2022-05-30] MEDS: AmLODIPine BESYLATE 5 MG TABLET PO SCH ×2 (07:50→21:23)
[2022-05-30 07:51] LABS: GLUCOSE,POINT OF CARE 126 MG/DL (70-110)
[2022-05-30] MEDS: ACETAMINOPHEN 325 MG TABLET PO PRN (07:51)
[2022-05-30] MEDS: LACTULOSE 20 GM/30 ML SOLUTION UDCUP NG SCH ×3 (07:52→21:23)
[2022-05-30] MEDS: PANTOPRAZOLE SODIUM 40 MG/VIAL IVP SCH (07:52)
[2022-05-30] MEDS: BUMETANIDE 0.25 MG/ML 4 ML VIAL IVP SCH (07:55)
[2022-05-30] MEDS: ETHYL ALCOHOL 62% ANTISEPTIC NASAL SANITIZER 0.6 ML AMPUL NASAL SCH ×2 (07:58→21:23)
[2022-05-30] MEDS ORDERED: ALPRAZolam 0.25 MG TABLET PO ONE (10:15)
[2022-05-30 11:48] LABS: ABG BASE EXCESS 2.3 mmol/L (-2.0-3.0); ABG CARBOXYHEMOGLOBIN 0.8 % (0.0-1.5); ABG HCO3 26.5 mmol/L (22.0-26.0); ABG METHEMOGLOBIN 0.2 % (0.0-1.5); ABG OXYGEN SATURATION 98.2 % (95.0-98.0); ABG OXYHEMOGLOBIN 97.2 % (94.0-100.0); ABG PCO2 36 mmHg (35-45); ABG PH 7.475 (7.35-7.450); PO2, ARTERIAL BG 114.5 mmHg (75.0-83.0); SOURCE, BLOOD GAS ARTERIAL; TEMPERATURE, FAHRENHEIT, BG 100.3 FAHREN (96.0-98.6)
[2022-05-30 11:49] LABS: ABG TOTAL HEMOGLOBIN 7.9 G/dL (12.0-18.0); O2 DEVICE,BLOOD GAS VENTILATOR (ROOM AIR); PEEP,BG 0 cm H2O; PRESSURE SUPPORT, BG 5 cm H2O; SITE, BLOOD GAS RT RADIAL; SPONTANEOUS VT, BG 431 ml; VENT MODE, BG Press. Support Vent. (ROOM AIR)
[2022-05-30] MEDS ORDERED: HEPARIN SODIUM,PORCINE 1,000 UNITS/ML VIAL IVP ONE (12:00)
[2022-05-30] MEDS ORDERED: VANCOMYCIN HCL 750 MG in DEXTROSE 5%-WATER 250 ML IV ONE (16:00)
[2022-05-30] MEDS: CEFEPIME HCL 0.5 GM in DEXTROSE 5%-WATER 50 ML IV SCH (18:27)
[2022-05-30 18:36] LABS: GLUCOSE,POINT OF CARE 110 MG/DL (70-110)
[2022-05-30 18:36] LABS: GLUCOSE,POINT OF CARE 138 MG/DL (70-110)
[2022-05-31] VITALS (14 sets, daily range): BP systolic 143–167; BP diastolic 74–90
[2022-05-31] MEDS: HydrALAZINE HCL 25 MG TABLET PO SCH ×4 (00:08→17:13)
[2022-05-31] MEDS: BUMETANIDE 0.25 MG/ML 4 ML VIAL IVP SCH ×3 (00:08→15:51)
[2022-05-31] MEDS: METOCLOPRAMIDE HCL 5 MG/ML 2 ML VIAL IVP SCH ×3 (00:08→15:51)
[2022-05-31] MEDS ORDERED: SODIUM CHLORIDE 0.9% 250 ML IV ONE (03:45)
[2022-05-31 05:26] LABS: BASOPHILS % (AUTO) 0.2 % (0.0-2.0); EOSINOPHILS % (AUTO) 2.1 % (1.0-6.0); HEMOGLOBIN 7.7 g/dL (13.5-17.5); LYMPHOCYTES # (AUTO) 0.8 K/uL (1.0-4.8); LYMPHOCYTES % (AUTO) 3.6 % (22.0-44.0); MEAN CORPUSCULAR HEMOGLOBIN 27.7 pg (26.0-34.0); MEAN CORPUSCULAR HGB CONC 33.4 G/dL (31.0-37.0); MEAN CORPUSCULAR VOLUME 83 fL (80-100); MONOCYTES # (AUTO) 1.8 K/uL (0.1-1.0); MONOCYTES % (AUTO) 8.7 % (2.0-9.0); NEUTROPHILS # (AUTO) 18.2 K/uL (1.8-7.7); PLATELET COUNT (AUTO) 366 K/uL (150-450); RED BLOOD CELL COUNT(AUTO) 2.77 MIL/uL (4.50-5.90); RED CELL DISTRIBUTION WIDTH 15.6 % (11.5-14.5)
[2022-05-31 05:40] LABS: CALCIUM, TOTAL 8.5 mg/dL (8.8-10.5); CREATININE 6.47 mg/dL (0.60-1.30); MAGNESIUM 2.3 mg/dL (1.80-2.40); PHOSPHORUS 6.2 mg/dL (2.5-4.9); POTASSIUM 5.1 mmol/L (3.5-5.1)
[2022-05-31 06:18] LABS: NEUTROPHILS % (AUTO) 85.4 % (40.0-70.0)
[2022-05-31] MEDS: AmLODIPine BESYLATE 5 MG TABLET PO SCH ×2 (08:58→21:40)
[2022-05-31] MEDS: ETHYL ALCOHOL 62% ANTISEPTIC NASAL SANITIZER 0.6 ML AMPUL NASAL SCH ×2 (08:58→21:40)
[2022-05-31] MEDS: PANTOPRAZOLE SODIUM 40 MG/VIAL IVP SCH (08:59)
[2022-05-31] MEDS: LACTULOSE 20 GM/30 ML SOLUTION UDCUP NG SCH ×3 (08:59→21:40)
[2022-05-31 10:46] LABS: GLUCOSE,POINT OF CARE 115 MG/DL (70-110)
[2022-05-31 11:11] LABS: GLUCOSE,POINT OF CARE 121 MG/DL (70-110)
[2022-05-31 11:49] LABS: PROTHROMBIN TIME 10.3 SEC (9.4-11.6)
[2022-05-31] MEDS ORDERED: HEPARIN SODIUM,PORCINE 1,000 UNITS/ML VIAL IVCATH ONE ×2 (13:15)
[2022-05-31 16:06] LABS: GLUCOSE,POINT OF CARE 101 MG/DL (70-110)
[2022-05-31] MEDS: CEFEPIME HCL 0.5 GM in DEXTROSE 5%-WATER 50 ML IV SCH (17:13)
[2022-05-31 20:45] LABS: GLUCOSE,POINT OF CARE 118 MG/DL (70-110)
[2022-06-01] VITALS: BP 152/81
[2022-06-01] MEDS: METOCLOPRAMIDE HCL 5 MG/ML 2 ML VIAL IVP SCH ×3 (00:19→16:50)
[2022-06-01] MEDS: BUMETANIDE 0.25 MG/ML 4 ML VIAL IVP SCH ×2 (00:19→08:00)
[2022-06-01] MEDS: HydrALAZINE HCL 25 MG TABLET PO SCH ×5 (00:20→18:24)
[2022-06-01 04:00] VITALS: BP 159/83
[2022-06-01 04:26] LABS: GLUCOSE,POINT OF CARE 105 MG/DL (70-110)
[2022-06-01 05:01] LABS: BASOPHILS % (AUTO) 0.3 % (0.0-2.0); EOSINOPHILS % (AUTO) 1.6 % (1.0-6.0); HEMATOCRIT 23.7 % (41-53); HEMOGLOBIN 7.8 g/dL (13.5-17.5); LYMPHOCYTES % (AUTO) 5.5 % (22.0-44.0); MEAN CORPUSCULAR HEMOGLOBIN 27.6 pg (26.0-34.0); MEAN CORPUSCULAR HGB CONC 32.9 G/dL (31.0-37.0); MEAN CORPUSCULAR VOLUME 84 fL (80-100); MONOCYTES # (AUTO) 1.8 K/uL (0.1-1.0); MONOCYTES % (AUTO) 9.6 % (2.0-9.0); NEUTROPHILS # (AUTO) 15.5 K/uL (1.8-7.7); PLATELET COUNT (AUTO) 366 K/uL (150-450); RED BLOOD CELL COUNT(AUTO) 2.83 MIL/uL (4.50-5.90)
[2022-06-01 05:10] LABS: CALCIUM, TOTAL 8.6 mg/dL (8.8-10.5); CREATININE 4.24 mg/dL (0.60-1.30); POTASSIUM 4.1 mmol/L (3.5-5.1)
[2022-06-01] MEDS: HydrALAZINE HCL 20 MG/ML VIAL IVP PRN (06:35)
[2022-06-01 08:00] VITALS: BP 159/85
[2022-06-01] MEDS: PANTOPRAZOLE SODIUM 40 MG/VIAL IVP SCH (08:04)
[2022-06-01] MEDS: ETHYL ALCOHOL 62% ANTISEPTIC NASAL SANITIZER 0.6 ML AMPUL NASAL SCH ×2 (08:05→21:26)
[2022-06-01] MEDS: AmLODIPine BESYLATE 5 MG TABLET PO SCH ×2 (08:05→21:26)
[2022-06-01] MEDS: LACTULOSE 20 GM/30 ML SOLUTION UDCUP NG SCH ×3 (08:06→21:26)
[2022-06-01] MEDS: FentaNYL CIT 1000MCG/0.9% NACL 100 ML IV PRN ×2 (09:20→15:01)
[2022-06-01] MEDS ORDERED: ROCURONIUM BROMIDE 10 MG/ML 5 ML VIAL IVP ONE (09:30)
[2022-06-01] MEDS: PROPOFOL 1000 MG/ISO-OSM 100 ML IV PRN ×3 (09:40→21:28)
[2022-06-01] MEDS ORDERED: SODIUM CHLORIDE 0.9% 250 ML IV ONE (09:51)
[2022-06-01 12:00] VITALS: BP 131/77
[2022-06-01 16:00] VITALS: BP 134/79
[2022-06-01] MEDS: CEFEPIME HCL 0.5 GM in DEXTROSE 5%-WATER 50 ML IV SCH (18:24)
[2022-06-01 18:31] LABS: GLUCOSE,POINT OF CARE 112 MG/DL (70-110)
[2022-06-01 18:35] LABS: GLUCOSE,POINT OF CARE 101 MG/DL (70-110)
[2022-06-01 18:35] LABS: GLUCOSE,POINT OF CARE 103 MG/DL (70-110)
[2022-06-01 20:00] VITALS: BP 129/70
[2022-06-02] VITALS (16 sets, daily range): BP systolic 116–150; BP diastolic 64–85
[2022-06-02] MEDS: HydrALAZINE HCL 25 MG TABLET PO SCH ×4 (00:09→18:23)
[2022-06-02] MEDS: METOCLOPRAMIDE HCL 5 MG/ML 2 ML VIAL IVP SCH ×3 (00:09→17:25)
[2022-06-02] MEDS: FentaNYL CIT 1000MCG/0.9% NACL 100 ML IV PRN ×2 (04:03→14:24)
[2022-06-02] MEDS: PROPOFOL 1000 MG/ISO-OSM 100 ML IV PRN (04:04)
[2022-06-02 05:26] LABS: GLUCOSE,POINT OF CARE 107 MG/DL (70-110)
[2022-06-02 05:38] LABS: BASOPHILS % (AUTO) 0.8 % (0.0-2.0); EOSINOPHILS % (AUTO) 3.7 % (1.0-6.0); HEMATOCRIT 21.7 % (41-53); HEMOGLOBIN 7.2 g/dL (13.5-17.5); LYMPHOCYTES # (AUTO) 0.8 K/uL (1.0-4.8); LYMPHOCYTES % (AUTO) 5.8 % (22.0-44.0); MEAN CORPUSCULAR HEMOGLOBIN 27.8 pg (26.0-34.0); MEAN CORPUSCULAR HGB CONC 32.9 G/dL (31.0-37.0); MEAN CORPUSCULAR VOLUME 84 fL (80-100); MONOCYTES # (AUTO) 1.6 K/uL (0.1-1.0); MONOCYTES % (AUTO) 11.4 % (2.0-9.0); NEUTROPHILS # (AUTO) 10.8 K/uL (1.8-7.7); NEUTROPHILS % (AUTO) 78.3 % (40.0-70.0); PLATELET COUNT (AUTO) 385 K/uL (150-450); RED BLOOD CELL COUNT(AUTO) 2.58 MIL/uL (4.50-5.90); RED CELL DISTRIBUTION WIDTH 16.2 % (11.5-14.5)
[2022-06-02 05:53] LABS: CALCIUM, TOTAL 8.8 mg/dL (8.8-10.5); CREATININE 5.76 mg/dL (0.60-1.30); MAGNESIUM 2.3 mg/dL (1.80-2.40); POTASSIUM 4.4 mmol/L (3.5-5.1)
[2022-06-02 08:01] LABS: VANCOMYCIN,RANDOM 18.3 mcg/mL (25.0-50.0)
[2022-06-02] MEDS: AmLODIPine BESYLATE 5 MG TABLET PO SCH ×2 (08:23→21:29)
[2022-06-02] MEDS: ETHYL ALCOHOL 62% ANTISEPTIC NASAL SANITIZER 0.6 ML AMPUL NASAL SCH ×2 (08:23→21:29)
[2022-06-02] MEDS: LACTULOSE 20 GM/30 ML SOLUTION UDCUP NG SCH ×3 (08:23→21:29)
[2022-06-02] MEDS: PANTOPRAZOLE SODIUM 40 MG/VIAL IVP SCH (08:23)
[2022-06-02] MEDS ORDERED: SODIUM CHLORIDE 0.9% 2,000 ML ONE (09:49)
[2022-06-02] MEDS ORDERED: HEPARIN SODIUM,PORCINE 1,000 UNITS/ML VIAL IVCATH PRN ×4 (13:30→13:31)
[2022-06-02] MEDS ORDERED: HEPARIN SODIUM,PORCINE 1,000 UNITS/ML VIAL IVCATH ONE ×2 (14:00)
[2022-06-02] MEDS ORDERED: VANCOMYCIN HCL 750 MG in DEXTROSE 5%-WATER 250 ML IV ONE (17:00)
[2022-06-02] MEDS: CEFEPIME HCL 0.5 GM in DEXTROSE 5%-WATER 50 ML IV SCH (18:23)
[2022-06-02 18:51] LABS: GLUCOSE,POINT OF CARE 106 MG/DL (70-110)
[2022-06-02 19:11] LABS: GLUCOSE,POINT OF CARE 142 MG/DL (70-110)
[2022-06-02] MEDS: DEXMEDETOMIDINE HCL 400 MCG in SODIUM CHLORIDE 0.9% 96 ML IV PRN (20:50)
[2022-06-03] VITALS: BP 135/76
[2022-06-03] MEDS: METOCLOPRAMIDE HCL 5 MG/ML 2 ML VIAL IVP SCH ×3 (00:24→15:23)
[2022-06-03] MEDS: HydrALAZINE HCL 25 MG TABLET PO SCH ×4 (00:24→17:09)
[2022-06-03 04:00] VITALS: BP 135/67
[2022-06-03 05:53] LABS: CALCIUM, TOTAL 8.8 mg/dL (8.8-10.5); CREATININE 3.88 mg/dL (0.60-1.30); POTASSIUM 4.4 mmol/L (3.5-5.1)
[2022-06-03] MEDS: FentaNYL CIT 1000MCG/0.9% NACL 100 ML IV PRN ×2 (06:20→13:54)
[2022-06-03 06:56] LABS: GLUCOSE,POINT OF CARE 114 MG/DL (70-110)
[2022-06-03 08:00] VITALS: BP 138/65
[2022-06-03] MEDS ORDERED: CeFAZolin 1 GM/DEXTROSE 50 ML IV ONE (08:00)
[2022-06-03 08:05] LABS: BASOPHILS % (AUTO) 0.5 % (0.0-2.0); EOSINOPHILS % (AUTO) 3.2 % (1.0-6.0); HEMATOCRIT 21.9 % (41-53); HEMOGLOBIN 7.1 g/dL (13.5-17.5); LYMPHOCYTES % (AUTO) 6.7 % (22.0-44.0); MEAN CORPUSCULAR HEMOGLOBIN 27.4 pg (26.0-34.0); MEAN CORPUSCULAR HGB CONC 32.3 G/dL (31.0-37.0); MEAN CORPUSCULAR VOLUME 85 fL (80-100); MONOCYTES # (AUTO) 1.6 K/uL (0.1-1.0); MONOCYTES % (AUTO) 11.1 % (2.0-9.0); NEUTROPHILS # (AUTO) 11.7 K/uL (1.8-7.7); NEUTROPHILS % (AUTO) 78.5 % (40.0-70.0); PLATELET COUNT (AUTO) 398 K/uL (150-450); RED BLOOD CELL COUNT(AUTO) 2.58 MIL/uL (4.50-5.90); RED CELL DISTRIBUTION WIDTH 16.1 % (11.5-14.5)
[2022-06-03] MEDS: PANTOPRAZOLE SODIUM 40 MG/VIAL IVP SCH (08:20)
[2022-06-03] MEDS: AmLODIPine BESYLATE 5 MG TABLET PO SCH ×2 (08:20→21:13)
[2022-06-03] MEDS: LACTULOSE 20 GM/30 ML SOLUTION UDCUP NG SCH ×3 (08:20→21:13)
[2022-06-03] MEDS: ETHYL ALCOHOL 62% ANTISEPTIC NASAL SANITIZER 0.6 ML AMPUL NASAL SCH ×2 (08:20→21:13)
[2022-06-03] MEDS: DEXMEDETOMIDINE HCL 400 MCG in SODIUM CHLORIDE 0.9% 96 ML IV PRN ×2 (10:08→19:31)
[2022-06-03 12:00] VITALS: BP 123/73
[2022-06-03 16:00] VITALS: BP 132/69
[2022-06-03] MEDS: CEFEPIME HCL 0.5 GM in DEXTROSE 5%-WATER 50 ML IV SCH (17:09)
[2022-06-03 18:27] LABS: GLUCOSE,POINT OF CARE 111 MG/DL (70-110)
[2022-06-03 18:31] LABS: GLUCOSE,POINT OF CARE 105 MG/DL (70-110)
[2022-06-03 20:00] VITALS: BP 146/76
[2022-06-04] VITALS (11 sets, daily range): BP systolic 111–156; BP diastolic 63–85
[2022-06-04] MEDS: HydrALAZINE HCL 25 MG TABLET PO SCH ×4 (00:27→17:51)
[2022-06-04] MEDS: METOCLOPRAMIDE HCL 5 MG/ML 2 ML VIAL IVP SCH ×3 (00:27→15:45)
[2022-06-04 05:01] LABS: GLUCOSE,POINT OF CARE 96 MG/DL (70-110)
[2022-06-04] MEDS: FentaNYL CIT 1000MCG/0.9% NACL 100 ML IV PRN ×2 (05:33→15:45)
[2022-06-04 06:04] LABS: BASOPHILS % (AUTO) 0.7 % (0.0-2.0); EOSINOPHILS % (AUTO) 2.7 % (1.0-6.0); LYMPHOCYTES # (AUTO) 0.4 K/uL (1.0-4.8); LYMPHOCYTES % (AUTO) 3.7 % (22.0-44.0); MEAN CORPUSCULAR HEMOGLOBIN 28.1 pg (26.0-34.0); MEAN CORPUSCULAR HGB CONC 32.8 G/dL (31.0-37.0); MEAN CORPUSCULAR VOLUME 86 fL (80-100); MONOCYTES % (AUTO) 8.1 % (2.0-9.0); NEUTROPHILS # (AUTO) 10.1 K/uL (1.8-7.7); NEUTROPHILS % (AUTO) 84.8 % (40.0-70.0); PLATELET COUNT (AUTO) 371 K/uL (150-450); RED BLOOD CELL COUNT(AUTO) 2.37 MIL/uL (4.50-5.90)
[2022-06-04 06:10] LABS: CALCIUM, TOTAL 8.8 mg/dL (8.8-10.5); CREATININE 5.23 mg/dL (0.60-1.30); POTASSIUM 4.5 mmol/L (3.5-5.1); VANCOMYCIN,RANDOM 22.7 mcg/mL (25.0-50.0)
[2022-06-04] MEDS ORDERED: SODIUM CHLORIDE 0.9% 250 ML IV ONE ×2 (06:20→07:46)
[2022-06-04 06:23] LABS: HEMATOCRIT 20.3 % (41-53); HEMOGLOBIN 6.6 g/dL (13.5-17.5)
[2022-06-04 06:55] LABS: GLUCOSE,POINT OF CARE 112 MG/DL (70-110)
[2022-06-04] MEDS: LACTULOSE 20 GM/30 ML SOLUTION UDCUP NG SCH ×3 (08:00→21:13)
[2022-06-04] MEDS: ETHYL ALCOHOL 62% ANTISEPTIC NASAL SANITIZER 0.6 ML AMPUL NASAL SCH ×2 (08:00→21:13)
[2022-06-04] MEDS: AmLODIPine BESYLATE 5 MG TABLET PO SCH ×2 (08:00→21:13)
[2022-06-04] MEDS: PANTOPRAZOLE SODIUM 40 MG/VIAL IVP SCH (08:00)
[2022-06-04 13:06] LABS: GLUCOSE,POINT OF CARE 114 MG/DL (70-110)
[2022-06-04 15:12] LABS: HEMATOCRIT 23.3 % (41-53); HEMOGLOBIN 7.8 g/dL (13.5-17.5)
[2022-06-04] MEDS: PROPOFOL 1000 MG/ISO-OSM 100 ML IV PRN (15:46)
[2022-06-04] MEDS: DEXMEDETOMIDINE HCL 400 MCG in SODIUM CHLORIDE 0.9% 96 ML IV PRN (17:33)
[2022-06-04] MEDS: CEFEPIME HCL 0.5 GM in DEXTROSE 5%-WATER 50 ML IV SCH (17:51)
[2022-06-04 19:21] LABS: GLUCOSE,POINT OF CARE 109 MG/DL (70-110)
[2022-06-05] VITALS (15 sets, daily range): BP systolic 125–183; BP diastolic 68–94
[2022-06-05] MEDS: METOCLOPRAMIDE HCL 5 MG/ML 2 ML VIAL IVP SCH ×4 (00:11→23:50)
[2022-06-05] MEDS: HydrALAZINE HCL 25 MG TABLET PO SCH ×5 (00:11→23:50)
[2022-06-05] MEDS: DEXMEDETOMIDINE HCL 400 MCG in SODIUM CHLORIDE 0.9% 96 ML IV PRN ×2 (02:42→20:18)
[2022-06-05 05:11] LABS: GLUCOSE,POINT OF CARE 112 MG/DL (70-110)
[2022-06-05 05:38] LABS: BASOPHILS % (AUTO) 0.5 % (0.0-2.0); EOSINOPHILS % (AUTO) 2.1 % (1.0-6.0); HEMATOCRIT 22.3 % (41-53); HEMOGLOBIN 7.4 g/dL (13.5-17.5); LYMPHOCYTES # (AUTO) 0.4 K/uL (1.0-4.8); LYMPHOCYTES % (AUTO) 3.4 % (22.0-44.0); MEAN CORPUSCULAR HGB CONC 33.4 G/dL (31.0-37.0); MEAN CORPUSCULAR VOLUME 84 fL (80-100); MONOCYTES # (AUTO) 1.1 K/uL (0.1-1.0); MONOCYTES % (AUTO) 8.3 % (2.0-9.0); NEUTROPHILS # (AUTO) 11.1 K/uL (1.8-7.7); PLATELET COUNT (AUTO) 410 K/uL (150-450); RED BLOOD CELL COUNT(AUTO) 2.65 MIL/uL (4.50-5.90); RED CELL DISTRIBUTION WIDTH 16.8 % (11.5-14.5)
[2022-06-05 05:44] LABS: NEUTROPHILS % (AUTO) 85.7 % (40.0-70.0)
[2022-06-05 05:48] LABS: CALCIUM, TOTAL 8.9 mg/dL (8.8-10.5); CREATININE 6.42 mg/dL (0.60-1.30); MAGNESIUM 2.5 mg/dL (1.80-2.40); PHOSPHORUS 7.2 mg/dL (2.5-4.9); POTASSIUM 4.8 mmol/L (3.5-5.1); PROTHROMBIN TIME 10.3 SEC (9.4-11.6)
[2022-06-05] MEDS: PANTOPRAZOLE SODIUM 40 MG/VIAL IVP SCH (08:08)
[2022-06-05] MEDS: ETHYL ALCOHOL 62% ANTISEPTIC NASAL SANITIZER 0.6 ML AMPUL NASAL SCH ×2 (08:09→20:48)
[2022-06-05] MEDS: LACTULOSE 20 GM/30 ML SOLUTION UDCUP NG SCH ×3 (08:10→20:49)
[2022-06-05] MEDS: AmLODIPine BESYLATE 5 MG TABLET PO SCH ×2 (08:10→20:48)
[2022-06-05 10:11] LABS: GLUCOSE,POINT OF CARE 119 MG/DL (70-110)
[2022-06-05] MEDS: FentaNYL CIT 1000MCG/0.9% NACL 100 ML IV PRN (12:48)
[2022-06-05] MEDS ORDERED: HEPARIN SODIUM,PORCINE 1,000 UNITS/ML VIAL IVCATH ONE ×2 (13:00)
[2022-06-05] MEDS: ACETAMINOPHEN 325 MG TABLET PO PRN (16:52)
[2022-06-05] MEDS: CEFEPIME HCL 0.5 GM in DEXTROSE 5%-WATER 50 ML IV SCH (18:31)
[2022-06-05 22:21] LABS: GLUCOSE,POINT OF CARE 116 MG/DL (70-110)
[2022-06-05 22:21] LABS: GLUCOSE,POINT OF CARE 96 MG/DL (70-110)
[2022-06-06] VITALS: BP 116/69
[2022-06-06 04:00] VITALS: BP 157/86
[2022-06-06 05:39] LABS: BASOPHILS % (AUTO) 0.7 % (0.0-2.0); EOSINOPHILS % (AUTO) 3.5 % (1.0-6.0); HEMATOCRIT 22.5 % (41-53); HEMOGLOBIN 7.6 g/dL (13.5-17.5); LYMPHOCYTES # (AUTO) 0.4 K/uL (1.0-4.8); LYMPHOCYTES % (AUTO) 3.1 % (22.0-44.0); MEAN CORPUSCULAR HGB CONC 33.7 G/dL (31.0-37.0); MEAN CORPUSCULAR VOLUME 83 fL (80-100); MONOCYTES # (AUTO) 1.3 K/uL (0.1-1.0); MONOCYTES % (AUTO) 9.9 % (2.0-9.0); NEUTROPHILS # (AUTO) 10.5 K/uL (1.8-7.7); NEUTROPHILS % (AUTO) 82.8 % (40.0-70.0); PLATELET COUNT (AUTO) 462 K/uL (150-450)
[2022-06-06 05:51] LABS: CREATININE 4.13 mg/dL (0.60-1.30); POTASSIUM 4.2 mmol/L (3.5-5.1); VANCOMYCIN,RANDOM 15.9 mcg/mL (25.0-50.0)
[2022-06-06 05:57] LABS: CALCIUM, TOTAL 8.7 mg/dL (8.8-10.5)
[2022-06-06] MEDS: HydrALAZINE HCL 25 MG TABLET PO SCH ×3 (05:59→18:26)
[2022-06-06] MEDS: FentaNYL CIT 1000MCG/0.9% NACL 100 ML IV PRN (06:27)
[2022-06-06 08:00] VITALS: BP 134/79
[2022-06-06] MEDS: METOCLOPRAMIDE HCL 5 MG/ML 2 ML VIAL IVP SCH ×2 (08:00→15:09)
[2022-06-06] MEDS: PANTOPRAZOLE SODIUM 40 MG/VIAL IVP SCH (08:26)
[2022-06-06] MEDS: ETHYL ALCOHOL 62% ANTISEPTIC NASAL SANITIZER 0.6 ML AMPUL NASAL SCH ×2 (08:28→21:25)
[2022-06-06] MEDS: AmLODIPine BESYLATE 5 MG TABLET PO SCH ×2 (08:30→21:25)
[2022-06-06] MEDS: LACTULOSE 20 GM/30 ML SOLUTION UDCUP NG SCH ×3 (08:30→21:25)
[2022-06-06] MEDS ORDERED: VANCOMYCIN 1GM/WATER(PEG/NADA) 200 ML IV ONE (09:00)
[2022-06-06 10:03] LABS: ABG CARBOXYHEMOGLOBIN 1.4 % (0.0-1.5); ABG HCO3 26.2 mmol/L (22.0-26.0); ABG METHEMOGLOBIN 0.3 % (0.0-1.5); ABG OXYGEN CONTENT 11.4 mL/dL (15.0-23.0); ABG OXYGEN SATURATION 98.7 % (95.0-98.0); ABG PCO2 38 mmHg (35-45); ABG PH 7.451 (7.35-7.450); ABG TOTAL HEMOGLOBIN 8.2 G/dL (12.0-18.0); PO2, ARTERIAL BG 113.4 mmHg (75.0-83.0); SOURCE, BLOOD GAS ARTERIAL; TEMPERATURE, FAHRENHEIT, BG 98.6 FAHREN (96.0-98.6)
[2022-06-06 10:04] LABS: ABG A-A DIFF O2 55.6 mmHg (10-20.0); CPAP, BG 5 cm H2O; O2 DEVICE,BLOOD GAS VENTILATOR (ROOM AIR); PRESSURE SUPPORT, BG 5 cm H2O; SITE, BLOOD GAS LFT RADIAL; SPONTANEOUS VT, BG 480 ml; VENT MODE, BG CPAP (ROOM AIR)
[2022-06-06 11:41] LABS: GLUCOSE,POINT OF CARE 103 MG/DL (70-110)
[2022-06-06 11:41] LABS: GLUCOSE,POINT OF CARE 132 MG/DL (70-110)
[2022-06-06 12:00] VITALS: BP 155/80
[2022-06-06 12:37] LABS: ABG A-A DIFF O2 82.1 mmHg (10-20.0); ABG BASE EXCESS 0.6 mmol/L (-2.0-3.0); ABG CARBOXYHEMOGLOBIN 1.4 % (0.0-1.5); ABG HCO3 25.1 mmol/L (22.0-26.0); ABG METHEMOGLOBIN 0.3 % (0.0-1.5); ABG OXYGEN CONTENT 11.5 mL/dL (15.0-23.0); ABG OXYHEMOGLOBIN 95.4 % (94.0-100.0); ABG PCO2 37 mmHg (35-45); ABG PH 7.443 (7.35-7.450); ABG TOTAL HEMOGLOBIN 8.5 G/dL (12.0-18.0); O2 DEVICE,BLOOD GAS TRACH COLLAR (ROOM AIR); PO2, ARTERIAL BG 88.3 mmHg (75.0-83.0); SITE, BLOOD GAS LFT RADIAL; SOURCE, BLOOD GAS ARTERIAL; TEMPERATURE, FAHRENHEIT, BG 98.6 FAHREN (96.0-98.6)
[2022-06-06] MEDS ORDERED: LIDOCAINE/PF 1% 30 ML VIAL ONE (15:59)
[2022-06-06] MEDS ORDERED: HEPARIN SODIUM,PORCINE 1,000 UNITS/ML 10 ML VIAL ONE ×2 (15:59→16:48)
[2022-06-06] MEDS ORDERED: BUPIVACAINE HCL/PF 0.5% 10 ML VIAL ONE (16:05)
[2022-06-06] MEDS ORDERED: FentaNYL CITRATE PF 100 MCG/2 ML VIAL ONE (16:08)
[2022-06-06] MEDS ORDERED: LIDOCAINE 1%/EPI 1:200,000/PF 10 ML VIAL ONE (16:08)
[2022-06-06] MEDS ORDERED: MIDAZOLAM HCL 2 MG/2 ML VIAL ONE (16:08)
[2022-06-06] MEDS ORDERED: HEPARIN SODIUM,PORCINE 1,000 UNITS/ML VIAL IVP ONE (17:19)
[2022-06-06] MEDS: CEFEPIME HCL 0.5 GM in DEXTROSE 5%-WATER 50 ML IV SCH (18:27)
[2022-06-06] MEDS ORDERED: SODIUM CHLORIDE 0.9% 250 ML IV ONE (18:34)
[2022-06-06 20:00] VITALS: BP 151/81
[2022-06-06 20:21] LABS: GLUCOSE,POINT OF CARE 92 MG/DL (70-110)
[2022-06-07] VITALS (15 sets, daily range): BP systolic 119–155; BP diastolic 64–86
[2022-06-07] MEDS: HydrALAZINE HCL 25 MG TABLET PO SCH ×4 (00:06→17:12)
[2022-06-07] MEDS: METOCLOPRAMIDE HCL 5 MG/ML 2 ML VIAL IVP SCH ×3 (00:06→15:50)
[2022-06-07 05:32] LABS: GLUCOSE,POINT OF CARE 104 MG/DL (70-110)
[2022-06-07 05:36] LABS: GLUCOSE,POINT OF CARE 104 MG/DL (70-110)
[2022-06-07] MEDS: DEXMEDETOMIDINE HCL 400 MCG in SODIUM CHLORIDE 0.9% 96 ML IV PRN ×2 (06:10→16:52)
[2022-06-07 06:11] LABS: BASOPHILS % (AUTO) 0.9 % (0.0-2.0); EOSINOPHILS % (AUTO) 2.9 % (1.0-6.0); HEMATOCRIT 21.3 % (41-53); HEMOGLOBIN 7.2 g/dL (13.5-17.5); LYMPHOCYTES # (AUTO) 0.6 K/uL (1.0-4.8); LYMPHOCYTES % (AUTO) 5.8 % (22.0-44.0); MEAN CORPUSCULAR HEMOGLOBIN 28.2 pg (26.0-34.0); MEAN CORPUSCULAR HGB CONC 33.7 G/dL (31.0-37.0); MEAN CORPUSCULAR VOLUME 84 fL (80-100); MONOCYTES # (AUTO) 1.2 K/uL (0.1-1.0); MONOCYTES % (AUTO) 11.2 % (2.0-9.0); NEUTROPHILS # (AUTO) 8.5 K/uL (1.8-7.7); NEUTROPHILS % (AUTO) 79.2 % (40.0-70.0); PLATELET COUNT (AUTO) 445 K/uL (150-450); RED BLOOD CELL COUNT(AUTO) 2.55 MIL/uL (4.50-5.90); RED CELL DISTRIBUTION WIDTH 16.9 % (11.5-14.5)
[2022-06-07 06:18] LABS: CALCIUM, TOTAL 8.9 mg/dL (8.8-10.5); CREATININE 5.46 mg/dL (0.60-1.30); PHOSPHORUS 5.7 mg/dL (2.5-4.9); POTASSIUM 4.5 mmol/L (3.5-5.1)
[2022-06-07] MEDS: LACTULOSE 20 GM/30 ML SOLUTION UDCUP NG SCH ×3 (08:15→21:54)
[2022-06-07] MEDS: AmLODIPine BESYLATE 5 MG TABLET PO SCH ×2 (08:15→21:54)
[2022-06-07] MEDS: ETHYL ALCOHOL 62% ANTISEPTIC NASAL SANITIZER 0.6 ML AMPUL NASAL SCH ×2 (08:15→21:54)
[2022-06-07] MEDS: PANTOPRAZOLE SODIUM 40 MG/VIAL IVP SCH (08:15)
[2022-06-07] MEDS ORDERED: SODIUM CHLORIDE 0.9% 2,000 ML ONE (10:46)
[2022-06-07] MEDS ORDERED: SODIUM CHLORIDE 0.9% 250 ML IV ONE (15:57)
[2022-06-07 17:01] LABS: GLUCOSE,POINT OF CARE 113 MG/DL (70-110)
[2022-06-07] MEDS: CEFEPIME HCL 0.5 GM in DEXTROSE 5%-WATER 50 ML IV SCH (17:12)
[2022-06-07 19:00] LABS: GLUCOSE,POINT OF CARE 134 MG/DL (70-110)
[2022-06-07] MEDS ORDERED: HEPARIN SODIUM,PORCINE 1,000 UNITS/ML VIAL IVP ONE (19:31)
[2022-06-08] VITALS (8 sets, daily range): BP systolic 118–152; BP diastolic 67–86
[2022-06-08] MEDS: DEXMEDETOMIDINE HCL 400 MCG in SODIUM CHLORIDE 0.9% 96 ML IV PRN ×3 (00:36→21:49)
[2022-06-08] MEDS: HydrALAZINE HCL 25 MG TABLET PO SCH ×4 (00:38→17:14)
[2022-06-08] MEDS: METOCLOPRAMIDE HCL 5 MG/ML 2 ML VIAL IVP SCH ×3 (00:38→14:42)
[2022-06-08 05:50] LABS: BASOPHILS % (AUTO) 1.3 % (0.0-2.0); EOSINOPHILS % (AUTO) 4.9 % (1.0-6.0); HEMATOCRIT 23.5 % (41-53); LYMPHOCYTES # (AUTO) 0.6 K/uL (1.0-4.8); LYMPHOCYTES % (AUTO) 6.6 % (22.0-44.0); MEAN CORPUSCULAR HEMOGLOBIN 28.6 pg (26.0-34.0); MEAN CORPUSCULAR HGB CONC 34.1 G/dL (31.0-37.0); MEAN CORPUSCULAR VOLUME 84 fL (80-100); MONOCYTES % (AUTO) 11.6 % (2.0-9.0); NEUTROPHILS # (AUTO) 6.6 K/uL (1.8-7.7); NEUTROPHILS % (AUTO) 75.6 % (40.0-70.0); PLATELET COUNT (AUTO) 457 K/uL (150-450); RED CELL DISTRIBUTION WIDTH 16.7 % (11.5-14.5)
[2022-06-08 05:52] LABS: GLUCOSE,POINT OF CARE 130 MG/DL (70-110)
[2022-06-08 06:05] LABS: CALCIUM, TOTAL 8.7 mg/dL (8.8-10.5); CREATININE 3.86 mg/dL (0.60-1.30); POTASSIUM 3.6 mmol/L (3.5-5.1)
[2022-06-08] MEDS: PANTOPRAZOLE SODIUM 40 MG/VIAL IVP SCH (08:49)
[2022-06-08] MEDS: AmLODIPine BESYLATE 5 MG TABLET PO SCH ×2 (08:49→21:48)
[2022-06-08] MEDS: LACTULOSE 20 GM/30 ML SOLUTION UDCUP NG SCH ×3 (08:49→21:00)
[2022-06-08] MEDS: ETHYL ALCOHOL 62% ANTISEPTIC NASAL SANITIZER 0.6 ML AMPUL NASAL SCH ×2 (08:49→21:20)
[2022-06-08 11:46] LABS: GLUCOSE,POINT OF CARE 124 MG/DL (70-110)
[2022-06-08] MEDS: ACETAMINOPHEN 325 MG TABLET PO PRN (13:19)
[2022-06-08 14:01] LABS: GLUCOSE,POINT OF CARE 112 MG/DL (70-110)
[2022-06-08] MEDS: CEFEPIME HCL 0.5 GM in DEXTROSE 5%-WATER 50 ML IV SCH (17:14)
[2022-06-08] MEDS ORDERED: SODIUM CHLORIDE 0.9% 250 ML IV ONE (18:57)
[2022-06-09] VITALS (14 sets, daily range): BP systolic 121–162; BP diastolic 67–83
[2022-06-09] MEDS: METOCLOPRAMIDE HCL 5 MG/ML 2 ML VIAL IVP SCH ×3 (00:33→15:45)
[2022-06-09] MEDS: HydrALAZINE HCL 25 MG TABLET PO SCH ×4 (00:33→18:25)
[2022-06-09 06:17] LABS: BASOPHILS % (AUTO) 1.4 % (0.0-2.0); EOSINOPHILS % (AUTO) 6.9 % (1.0-6.0); HEMATOCRIT 24.2 % (41-53); HEMOGLOBIN 7.9 g/dL (13.5-17.5); LYMPHOCYTES # (AUTO) 0.6 K/uL (1.0-4.8); LYMPHOCYTES % (AUTO) 6.4 % (22.0-44.0); MEAN CORPUSCULAR HEMOGLOBIN 27.5 pg (26.0-34.0); MEAN CORPUSCULAR HGB CONC 32.5 G/dL (31.0-37.0); MEAN CORPUSCULAR VOLUME 85 fL (80-100); MONOCYTES # (AUTO) 0.9 K/uL (0.1-1.0); MONOCYTES % (AUTO) 10.4 % (2.0-9.0); NEUTROPHILS # (AUTO) 6.5 K/uL (1.8-7.7); NEUTROPHILS % (AUTO) 74.9 % (40.0-70.0); PLATELET COUNT (AUTO) 463 K/uL (150-450); RED BLOOD CELL COUNT(AUTO) 2.87 MIL/uL (4.50-5.90); RED CELL DISTRIBUTION WIDTH 17.2 % (11.5-14.5)
[2022-06-09 06:31] LABS: CREATININE 4.92 mg/dL (0.60-1.30); POTASSIUM 3.7 mmol/L (3.5-5.1); VANCOMYCIN,RANDOM 20.9 mcg/mL (25.0-50.0)
[2022-06-09] MEDS: EPOETIN ALFA 10,000 UNITS/ML 2 ML VIAL SQ SCH (08:32)
[2022-06-09] MEDS: PANTOPRAZOLE SODIUM 40 MG/VIAL IVP SCH (08:32)
[2022-06-09] MEDS: AmLODIPine BESYLATE 5 MG TABLET PO SCH ×2 (08:32→22:00)
[2022-06-09] MEDS: ETHYL ALCOHOL 62% ANTISEPTIC NASAL SANITIZER 0.6 ML AMPUL NASAL SCH ×2 (08:32→21:50)
[2022-06-09] MEDS: LACTULOSE 20 GM/30 ML SOLUTION UDCUP NG SCH ×3 (08:33→21:59)
[2022-06-09] MEDS ORDERED: SODIUM CHLORIDE 0.9% 250 ML IV ONE (13:22)
[2022-06-09] MEDS ORDERED: VANCOMYCIN HCL 750 MG in DEXTROSE 5%-WATER 250 ML IV ONE (14:00)
[2022-06-09] MEDS: DEXMEDETOMIDINE HCL 400 MCG in SODIUM CHLORIDE 0.9% 96 ML IV PRN (15:31)
[2022-06-09] MEDS: CEFEPIME HCL 0.5 GM in DEXTROSE 5%-WATER 50 ML IV SCH (18:25)
[2022-06-10] VITALS: BP 141/76
[2022-06-10] MEDS: HydrALAZINE HCL 25 MG TABLET PO SCH ×4 (00:42→17:03)
[2022-06-10] MEDS: METOCLOPRAMIDE HCL 5 MG/ML 2 ML VIAL IVP SCH ×3 (00:42→15:05)
[2022-06-10 04:00] VITALS: BP 133/70
[2022-06-10 05:49] LABS: BASOPHILS % (AUTO) 1.4 % (0.0-2.0); EOSINOPHILS % (AUTO) 5.4 % (1.0-6.0); HEMATOCRIT 22.1 % (41-53); HEMOGLOBIN 7.3 g/dL (13.5-17.5); LYMPHOCYTES # (AUTO) 0.5 K/uL (1.0-4.8); LYMPHOCYTES % (AUTO) 5.9 % (22.0-44.0); MEAN CORPUSCULAR HEMOGLOBIN 27.7 pg (26.0-34.0); MEAN CORPUSCULAR VOLUME 84 fL (80-100); MONOCYTES # (AUTO) 1.1 K/uL (0.1-1.0); MONOCYTES % (AUTO) 11.8 % (2.0-9.0); NEUTROPHILS # (AUTO) 6.8 K/uL (1.8-7.7); NEUTROPHILS % (AUTO) 75.5 % (40.0-70.0); PLATELET COUNT (AUTO) 454 K/uL (150-450); RED BLOOD CELL COUNT(AUTO) 2.64 MIL/uL (4.50-5.90); RED CELL DISTRIBUTION WIDTH 16.3 % (11.5-14.5)
[2022-06-10 05:59] LABS: CREATININE 3.92 mg/dL (0.60-1.30); POTASSIUM 3.7 mmol/L (3.5-5.1)
[2022-06-10 06:00] LABS: CALCIUM, TOTAL 8.9 mg/dL (8.8-10.5)
[2022-06-10 08:00] VITALS: BP 138/72
[2022-06-10] MEDS: LACTULOSE 20 GM/30 ML SOLUTION UDCUP NG SCH ×3 (08:20→20:03)
[2022-06-10] MEDS: AmLODIPine BESYLATE 5 MG TABLET PO SCH ×2 (08:34→20:06)
[2022-06-10] MEDS: ETHYL ALCOHOL 62% ANTISEPTIC NASAL SANITIZER 0.6 ML AMPUL NASAL SCH ×2 (08:34→20:02)
[2022-06-10] MEDS: PANTOPRAZOLE SODIUM 40 MG/VIAL IVP SCH (08:35)
[2022-06-10 12:00] VITALS: BP 162/90
[2022-06-10] MEDS: HydrALAZINE HCL 20 MG/ML VIAL IVP PRN (15:04)
[2022-06-10 16:00] VITALS: BP 166/88
[2022-06-10] MEDS: CEFEPIME HCL 0.5 GM in DEXTROSE 5%-WATER 50 ML IV SCH (17:03)
[2022-06-10 20:00] VITALS: BP 152/60
[2022-06-10] MEDS: DEXMEDETOMIDINE HCL 400 MCG in SODIUM CHLORIDE 0.9% 96 ML IV PRN (20:04)
[2022-06-11] VITALS: BP 131/70
[2022-06-11] MEDS: HydrALAZINE HCL 25 MG TABLET PO SCH ×4 (00:11→18:59)
[2022-06-11] MEDS: METOCLOPRAMIDE HCL 5 MG/ML 2 ML VIAL IVP SCH ×3 (00:12→16:46)
[2022-06-11 04:00] VITALS: BP 124/69
[2022-06-11 05:18] LABS: BASOPHILS % (AUTO) 0.9 % (0.0-2.0); EOSINOPHILS % (AUTO) 4.3 % (1.0-6.0); HEMATOCRIT 21.2 % (41-53); HEMOGLOBIN 7.1 g/dL (13.5-17.5); LYMPHOCYTES # (AUTO) 0.6 K/uL (1.0-4.8); MEAN CORPUSCULAR HEMOGLOBIN 27.9 pg (26.0-34.0); MEAN CORPUSCULAR HGB CONC 33.4 G/dL (31.0-37.0); MEAN CORPUSCULAR VOLUME 84 fL (80-100); MONOCYTES # (AUTO) 0.9 K/uL (0.1-1.0); MONOCYTES % (AUTO) 9.8 % (2.0-9.0); NEUTROPHILS # (AUTO) 7.6 K/uL (1.8-7.7); PLATELET COUNT (AUTO) 462 K/uL (150-450); RED BLOOD CELL COUNT(AUTO) 2.54 MIL/uL (4.50-5.90)
[2022-06-11 05:29] LABS: ALBUMIN 1.7 g/dL (3.4-5.0); BILIRUBIN,TOTAL 0.4 mg/dL (0.1-1.0); CALCIUM, TOTAL 8.9 mg/dL (8.8-10.5); CREATININE 5.19 mg/dL (0.60-1.30); POTASSIUM 4.1 mmol/L (3.5-5.1); TOTAL PROTEIN, SERUM 7.4 g/dL (6.4-8.2)
[2022-06-11 08:00] VITALS: BP 136/78
[2022-06-11] MEDS: AmLODIPine BESYLATE 5 MG TABLET PO SCH ×2 (10:36→20:46)
[2022-06-11] MEDS: PANTOPRAZOLE SODIUM 40 MG/VIAL IVP SCH (10:36)
[2022-06-11] MEDS: ETHYL ALCOHOL 62% ANTISEPTIC NASAL SANITIZER 0.6 ML AMPUL NASAL SCH ×2 (10:36→20:46)
[2022-06-11] MEDS: LACTULOSE 20 GM/30 ML SOLUTION UDCUP NG SCH ×3 (10:36→20:43)
[2022-06-11 12:00] VITALS: BP 147/80
[2022-06-11 16:00] VITALS: BP 152/84
[2022-06-11] MEDS: CEFEPIME HCL 0.5 GM in DEXTROSE 5%-WATER 50 ML IV SCH (18:59)
[2022-06-11 20:00] VITALS: BP 146/82
[2022-06-11] MEDS ORDERED: SODIUM CHLORIDE 0.9% 250 ML IV ONE (20:45)
[2022-06-11] MEDS: ACETAMINOPHEN 325 MG TABLET PO PRN (20:46)
[2022-06-12] VITALS (14 sets, daily range): BP systolic 126–164; BP diastolic 76–92
[2022-06-12] MEDS: METOCLOPRAMIDE HCL 5 MG/ML 2 ML VIAL IVP SCH ×3 (00:50→16:35)
[2022-06-12] MEDS: HydrALAZINE HCL 25 MG TABLET PO SCH ×3 (00:50→12:37)
[2022-06-12 06:14] LABS: BASOPHILS % (AUTO) 1.6 % (0.0-2.0); EOSINOPHILS % (AUTO) 4.7 % (1.0-6.0); HEMATOCRIT 22.9 % (41-53); HEMOGLOBIN 7.4 g/dL (13.5-17.5); LYMPHOCYTES # (AUTO) 0.9 K/uL (1.0-4.8); LYMPHOCYTES % (AUTO) 8.4 % (22.0-44.0); MEAN CORPUSCULAR HEMOGLOBIN 27.1 pg (26.0-34.0); MEAN CORPUSCULAR HGB CONC 32.4 G/dL (31.0-37.0); MEAN CORPUSCULAR VOLUME 84 fL (80-100); MONOCYTES % (AUTO) 8.9 % (2.0-9.0); NEUTROPHILS # (AUTO) 8.4 K/uL (1.8-7.7); NEUTROPHILS % (AUTO) 76.4 % (40.0-70.0); PLATELET COUNT (AUTO) 564 K/uL (150-450); RED BLOOD CELL COUNT(AUTO) 2.74 MIL/uL (4.50-5.90)
[2022-06-12 06:31] LABS: BILIRUBIN,TOTAL 0.5 mg/dL (0.1-1.0); CALCIUM, TOTAL 9.3 mg/dL (8.8-10.5); CREATININE 6.49 mg/dL (0.60-1.30); POTASSIUM 4.5 mmol/L (3.5-5.1); TOTAL PROTEIN, SERUM 8.4 g/dL (6.4-8.2); VANCOMYCIN,RANDOM 24.1 mcg/mL (25.0-50.0)
[2022-06-12 07:29] LABS: MAGNESIUM 2.6 mg/dL (1.80-2.40); PHOSPHORUS 3.5 mg/dL (2.5-4.9)
[2022-06-12] MEDS: LACTULOSE 20 GM/30 ML SOLUTION UDCUP NG SCH ×2 (09:00→16:00)
[2022-06-12] MEDS: PANTOPRAZOLE SODIUM 40 MG/VIAL IVP SCH (09:06)
[2022-06-12] MEDS: ETHYL ALCOHOL 62% ANTISEPTIC NASAL SANITIZER 0.6 ML AMPUL NASAL SCH (09:07)
[2022-06-12] MEDS: EPOETIN ALFA 10,000 UNITS/ML 2 ML VIAL SQ SCH (09:07)
[2022-06-12] MEDS: AmLODIPine BESYLATE 5 MG TABLET PO SCH (09:07)
[2022-06-12] MEDS ORDERED: SODIUM CHLORIDE 0.9% 1,000 ML ONE (15:36)
[2022-06-12] MEDS ORDERED: MORPHINE SULFATE 2 MG/ML SYRINGE IVP PRN (15:45)
[2022-06-12] MEDS ORDERED: HYDROCODONE/ACETAMINOPHEN 5-325 MG TABLET PO PRN (15:45)
[2022-06-12] MEDS ORDERED: HEPARIN SODIUM,PORCINE 1,000 UNITS/ML VIAL IVCATH ONE ×2 (17:45)
[2022-06-12] MEDS ORDERED: HEPARIN SODIUM,PORCINE 1,000 UNITS/ML VIAL IVP ONE (23:20)
[2022-06-13] MEDS ORDERED: VANCOMYCIN HCL 750 MG in DEXTROSE 5%-WATER 250 ML IV ONE (05:00)
[2022-06-14] MEDS ORDERED: EPOETIN ALFA 10,000 UNITS/ML 2 ML VIAL SQ SCH (09:00)
== END 2022-06-12 18:30 | DRG 4 ==
LOC: EMS 15:09 → EDBD 05-19 06:57 → ICU 05-19 06:57
PROVIDERS: ADMIT Internal Medicine; ATTEND Internal Medicine
PROC: 5A1955Z Respiratory Ventilation, Greater than 96 Consecutive Hours (ICD-10-PCS; 2022-05-19)
PROC: 0BH17EZ Insertion of Endotracheal Airway into Trachea, Via Natural or Artificial Opening (ICD-10-PCS; 2022-05-19)
PROC: 06HY33Z Insertion of Infusion Device into Lower Vein, Percutaneous Approach (ICD-10-PCS; 2022-05-19)
PROC: B54CZZA Ultrasonography of Left Lower Extremity Veins, Guidance (ICD-10-PCS; 2022-05-19)
PROC: 5A1D70Z Performance of Urinary Filtration, Intermittent, Less than 6 Hours Per Day (ICD-10-PCS; principal; 2022-05-20)
PROC: 5A1D70Z Performance of Urinary Filtration, Intermittent, Less than 6 Hours Per Day (ICD-10-PCS; 2022-05-22)
PROC: 02HV33Z Insertion of Infusion Device into Superior Vena Cava, Percutaneous Approach (ICD-10-PCS; 2022-05-22)
PROC: B548ZZA Ultrasonography of Superior Vena Cava, Guidance (ICD-10-PCS; 2022-05-22)
PROC: 5A1D70Z Performance of Urinary Filtration, Intermittent, Less than 6 Hours Per Day (ICD-10-PCS; 2022-05-27)
PROC: 30233N1 Transfusion of Nonautologous Red Blood Cells into Peripheral Vein, Percutaneous Approach (ICD-10-PCS; 2022-05-28)
PROC: 5A1D70Z Performance of Urinary Filtration, Intermittent, Less than 6 Hours Per Day (ICD-10-PCS; 2022-05-29)
PROC: 5A1D70Z Performance of Urinary Filtration, Intermittent, Less than 6 Hours Per Day (ICD-10-PCS; 2022-05-31)
PROC: 0B113F4 Bypass Trachea to Cutaneous with Tracheostomy Device, Percutaneous Approach (ICD-10-PCS; 2022-06-01)
PROC: 5A1D70Z Performance of Urinary Filtration, Intermittent, Less than 6 Hours Per Day (ICD-10-PCS; 2022-06-02)
PROC: 0DH63UZ Insertion of Feeding Device into Stomach, Percutaneous Approach (ICD-10-PCS; 2022-06-03)
PROC: 5A1D70Z Performance of Urinary Filtration, Intermittent, Less than 6 Hours Per Day (ICD-10-PCS; 2022-06-05)
PROC: 0JH63XZ Insertion of Tunneled Vascular Access Device into Chest Subcutaneous Tissue and Fascia, Percutaneous Approach (ICD-10-PCS; 2022-06-06)
PROC: 02HV33Z Insertion of Infusion Device into Superior Vena Cava, Percutaneous Approach (ICD-10-PCS; 2022-06-06)
PROC: B5181ZA Fluoroscopy of Superior Vena Cava using Low Osmolar Contrast, Guidance (ICD-10-PCS; 2022-06-06)
PROC: B548ZZA Ultrasonography of Superior Vena Cava, Guidance (ICD-10-PCS; 2022-06-06)
PROC: 5A1D70Z Performance of Urinary Filtration, Intermittent, Less than 6 Hours Per Day (ICD-10-PCS; 2022-06-07)
PROC: 5A1D70Z Performance of Urinary Filtration, Intermittent, Less than 6 Hours Per Day (ICD-10-PCS; 2022-06-09)
PROC: 5A1D70Z Performance of Urinary Filtration, Intermittent, Less than 6 Hours Per Day (ICD-10-PCS; 2022-06-12)
DX: G92.8 Other toxic encephalopathy (principal); J96.00 Acute respiratory failure, unspecified whether with hypoxia or hypercapnia; E43 Unspecified severe protein-calorie malnutrition; N18.6 End stage renal disease; N17.0 Acute kidney failure with tubular necrosis; E87.0 Hyperosmolality and hypernatremia; S52.502A Unspecified fracture of the lower end of left radius, initial encounter for closed fracture; E87.20 Acidosis, unspecified; M62.82 Rhabdomyolysis; K92.2 Gastrointestinal hemorrhage, unspecified; E87.1 Hypo-osmolality and hyponatremia; Z99.11 Dependence on respirator [ventilator] status; Z20.822 Contact with and (suspected) exposure to COVID-19; G93.89 Other specified disorders of brain; D63.1 Anemia in chronic kidney disease; N28.1 Cyst of kidney, acquired; E87.5 Hyperkalemia; E86.0 Dehydration; N30.90 Cystitis, unspecified without hematuria; R33.9 Retention of urine, unspecified; K40.90 Unilateral inguinal hernia, without obstruction or gangrene, not specified as recurrent; K44.9 Diaphragmatic hernia without obstruction or gangrene; R13.10 Dysphagia, unspecified; K31.9 Disease of stomach and duodenum, unspecified; Z99.2 Dependence on renal dialysis; Z68.26 Body mass index [BMI] 26.0-26.9, adult; Y93.89 Activity, other specified; Y92.89 Other specified places as the place of occurrence of the external cause; Y99.8 Other external cause status; Z91.012 Allergy to eggs; Z91.010 Allergy to peanuts; Z91.013 Allergy to seafood
CPT/HCPCS: 36245; 36561; 36569; 36600; 70450; 71045; 71250; 72192; 74150; 76000; 76700; 76937; 80048; 80053; 80162; 80164; 80202; 81001; 81002; 82140; 82550; 82565; 82570; 82805; 82962; 83036; 83605; 83735; 83880; 84100; 84153; 84300; 84439; 84443; 84484; 84520; 84540; 85014; 85018; 85025; 85610; 85730; 86850; 86900; 86901; 86923; 87040; 87081; 87340; 87804; 90935; 93005; 93306; 94002; 94003; 95816; 99291; C9113; G0238; G0378; G0480; J0360; J0690; J0692; J0885; J1644; J1940; J2250; J2543; J2704; J2765; J3010; J3370; J3490; J7030; J7040; J7050; J7060; J7120; P9016; Q9967; 36415-L1; 36415-TC